=== PATIENT | male | born 1950 | race Caucasian/White ===

== ENCOUNTER 2017-07-18 21:05 | Inpatient (IN) | payer OTHER, MEDICARE ==
[~2017-07-18] VITALS: Ht 188 cm; Wt 74.7 kg
[~2017-07-18 21:05] MED LIST: ASPI81 PO; CARV6.252 PO; CEPH500C3 PO; COUM5TAB PO; PRIN10TA PO
[2017-07-18 21:09] VITALS: PULSE 201; RESP 28; O2SAT 99
[2017-07-18 21:18] VITALS: BP 123/86; PULSE 180; RESP 25; O2SAT 100
[2017-07-18] MEDS ORDERED: WARF-60 PO (21:18)
[2017-07-18] MEDS ORDERED: WARF4TAB52 PO (21:18)
[2017-07-18] MEDS ORDERED: ASPI-516 CHEW (21:18)
[2017-07-18] MEDS ORDERED: LISI20TA3 PO (21:18)
[2017-07-18 21:32] VITALS: O2SAT 99
[2017-07-18 21:41] VITALS: BP 139/87; PULSE 136; RESP 24; O2SAT 93; O2SAT 98
[2017-07-18] MEDS ORDERED: methylPREDNISolone SOD SUCC 125 MG/2 ML VIAL IV PUSH ONE (21:45)
[2017-07-18] MEDS ORDERED: METOPROLOL TARTRATE 5 MG/5 ML VIAL IV PUSH PRN (21:45)
[2017-07-18] MEDS ORDERED: METOPROLOL TARTRATE 25 MG TAB PO ONE (21:45)
[2017-07-18] MEDS ORDERED: RESP: ALBUTEROL 2.5 MG/IPRATROPIUM 0.5 MG NEB (SCH) NEB ONE (21:45)
[2017-07-18] MEDS: RESP: ALBUTEROL 2.5 MG/IPRATROPIUM 0.5 MG NEB (SCH) INH ×2 (21:45→21:52)
[2017-07-18] MEDS ORDERED: SODIUM CHLORIDE 0.9% FLUSH 10 ML FLUSH IVF PRN (21:45)
[2017-07-18 21:54] LABS: AUTOMATED NEUTROPHIL # 34.5 TH/MM3 (1.8-7.7); BASOPHIL # 0.1 TH/MM3 (0-0.2); BASOPHIL % 0.1 % (0.0-2.0); HEMATOCRIT 49.3 % (39.0-51.0); HEMOGLOBIN 16.7 GM/DL (13.0-17.0); LYMPH % 2.7 % (9.0-44.0); MEAN CELL VOLUME 82.9 FL (80.0-100.0); MEAN CORPUSCULAR HEMOGLOBIN 28.2 PG (27.0-34.0); MEAN PLATELET VOLUME 8.4 FL (7.0-11.0); MONO % 5.7 % (0.0-8.0); MONOCYTE # 2.1 TH/MM3 (0-0.9); NEUT % 91.5 % (16.0-70.0); PLATELET COUNT 310 TH/MM3 (150-450); RED BLOOD COUNT 5.94 MIL/MM3 (4.50-5.90); RED CELL DISTRIBUTION WIDTH 14.3 % (11.6-17.2); WHITE BLOOD COUNT 37.7 TH/MM3 (4.0-11.0)
--- NOTE | 2017-07-18 21:55 | PD ---
HPI Chief Complaint: Respiratory Distress Time Seen by Provider: 21:16 Travel History International Travel<30 days: No Contact w/Intl Traveler<30days: No Traveled to known affect area: No History of Present Illness HPI The patient is a 66 year old male who presents to the [facility] emergency department with a history of abdominal pain that he reports began yesterday. He reports that the abdominal pain radiated across his abdomen after he ate something at [employer]. He initially thought that he had food poisoning. He reports that he has had nausea and dry heaving since then. He reports that he has been able to keep down small bits of food including beef broth and crackers. He denies having any diarrhea. He reports that yesterday he moved his bowels 1 and it was an extremely hard stool. He reports that yesterday he also began to have shortness of breath. The patient reports having a prior history of smoking. He denies having any prior history of respiratory disease. He does however report having a history of cardiomyopathy with an ejection fraction noted previously to be approximately 25%. He denies having any significant cough or congestion. He denies having any fluid retention or lower extremity edema. He denies having any chest pain or chest pressure. The patient on arrival to this facility by private vehicle was noted to have heart rate in the 180s-200s and was in A. fib with RVR. The patient reports having a history of atrial fibrillation. He reports taking aspirin as well as low-dose aspirin daily. He reports that he recently established with Dr. Sharma a month ago for his primary care. He denies having a surgeon's assistant. Review of systems, the patient denies having any known recent fevers, neck pain, chest pain, shortness of breath, diarrhea, or neurologic symptoms. The patient incidentally also reports over the last 2 days having urinary frequency, urgency , and dysuria. [facility] Past Medical History Narrative Medical The patient's past medical history is significant for atrial fibrillation, cardiomyopathy, elevated TSH in the past, hypertension, tobacco use, reported history of cerebrovascular accident in 2009. Hx Anticoagulant Therapy: Yes (coumadin) Atrial Fibrillation: Yes Blood Disorders: No Cancer: No Cardiomyopathy: Yes Cardiovascular Problems: Yes Chemotherapy: No Cerebrovascular Accident: Yes (2009) Endocrine: No Glaucoma: No Genitourinary: Yes Immune Disorder: No Musculoskeletal: No Neurologic: No Psychiatric: No Reproductive: No Respiratory: Yes Radiation Therapy: No ?: Not Past Surgical History Narrative Surgical The patient's past surgical history is significant for right knee surgery as a teenager. Tonsillectomy: Yes Other Surgery: Yes Social History Alcohol Use: No Tobacco Use: No (The patient reportedly quit smoking years ago) Substance Use: No Allergies-Medications (Allergen,Severity, Reaction): Coded Allergies: penicillin G (Unverified Allergy, Severe, Rash, 07/18/17) Reported Meds & Prescriptions Reported Meds & Active Scripts Active Reported Warfarin 6 Mg Tab 6 Mg PO DAILY Warfarin 1 Mg Tab 1 Mg PO EVERY OTHER DAY Aspirin 81 Mg Chew 81 Mg CHEW DAILY Lisinopril-Hctz 20-25 Mg Tab 1 Tab PO DAILY Review of Systems Except as stated in HPI: all other systems reviewed are Neg General / Constitutional: No: Fever Eyes: No: Visual changes HENT: No: Headaches, Congestion Cardiovascular: Positive: Palpitations, Tachycardia, Dyspnea on exertion, No: Chest Pain or Discomfort Respiratory: Positive: Shortness of Breath, No: Cough Gastrointestinal: Positive: Nausea, Vomiting (Dry heaving), Abdominal Pain, Constipation, Changes in Bowel Habits, Indigestion, No: Diarrhea, Hematemesis, Hematochezia, Loss of Appetite Genitourinary: No: Dysuria Musculoskeletal: No: Pain Skin: No Rash Neurologic: No: Weakness, Focal Abnormalities, Change in Mentation, Slurred Speech, Sensory Disturbance Psychiatric: No: Depression Endocrine: No: Polydipsia Hematologic/Lymphatic: No: Easy Bruising Physical Exam Narrative General: The patient is a well-developed well-nourished male in no acute distress, however on arrival the patient is noted to have O2 saturations in the upper 80s on arrival at triage. Head and Neck exam: Head is normocephalic atraumatic. Eyes: EOMI, pupils are equal round and reactive to light. Nose: Midline septum with pink mucous membranes Mouth: Dentition unremarkable. Moist mucus membranes. Posterior oropharynx is not erythematous. No tonsillar hypertrophy. Uvula midline. Airway patent. Neck: No palpable lymphadenopathy. No nuchal rigidity. No thyromegaly. Cardiovascular: Irregularly tachycardic with a rate in the 180s appears to be atrial fibrillation on telemetry without murmurs, gallops, or rubs are audible. Lungs: Diminished breath sounds in bilateral lung bases. No rhonchi, no crackles audible. Soft anterior expiratory wheezes are audible. Abdomen: Soft, with tenderness on palpation in the midepigastric area. No other tenderness on palpation of the other quadrants of the abdomen. No tenderness on palpation of McBurney's point. No guarding, rebound, or rigidity. Negative Orellana sign. Extremities: No clubbing, cyanosis, or edema. 2+ pulses in all 4 extremities. No calf tenderness on palpation. Back: No spinous process tenderness to palpation. No costovertebral angle tenderness to palpation. Neurologic Exam: Grossly nonfocal. Skin Exam: No rash noted. Intact skin that is warm and dry. Data Data Last Documented VS Vital Signs Date Time Temp Pulse Resp B/P (MAP) Pulse Ox O2 Delivery O2 Flow Rate FiO2 07/19/17 00:56 100 22 128/98 (108) 98 Nasal Cannula 3.00 Orders Orders Electrocardiogram (07/18/17 21:14) Electrocardiogram (07/18/17 21:27) Complete Blood Count With Diff (07/18/17:) Comprehensive Metabolic Panel (07/18/17 21:) Creatine Kinase (Cpk) (07/18/17 21:) Ckmb (Isoenzyme) Profile (07/18/17:) Troponin I (07/18/17:) B-Type Natriuretic Peptide (07/18/17 21:) Prothrombin Time / Inr (Pt) (07/18/17:) Act Partial Throm Time (Ptt) (07/18/17:) Blood Culture (07/18/17:) C-Reactive Protein (Crp) (07/18/17 21:27) Lipase (07/18/17 21:27) Urinalysis - C+S If Indicated (07/18/17:) Magnesium (Mg) (07/18/17 21:) Thyroid Stimulating Hormone (07/18/17:) Chest, Single Ap (07/18/17 21:27) Iv Access Insert/Monitor (07/18/17 21:27) Ecg Monitoring (07/18/17:) Oximetry (07/18/17 21:) Lactic Acid Sepsis Protocol (07/18/17 21:27) Metoprolol Tartrate Inj (Lopressor Inj) (07/18/17 21:45) Albuterol-Ipratropium Neb (Duoneb Neb) (07/18/17 21:45) Metoprolol Tartrate (Lopressor) (07/18/17 21:45) Methylprednisolone So Succ Inj (Solumedr (07/18/17 21:45) Oxygen Administration (07/18/17 21:36) Sodium Chloride 0.9% Flush (Ns Flush) (07/18/17 21:45) Albuterol-Ipratropium Neb (Duoneb Neb) (07/18/17 21:45) Fentanyl Inj (Fentanyl Inj) (07/18/17 22:45) Vancomycin Inj (Vancomycin Inj) (07/18/17 22:41) Aztreonam Inj (Azactam Inj) (07/18/17 22:41) Metronidazole 500 Mg Inj (Flagyl 500 Mg (07/18/17 22:41) Sodium Chlor 0.9% 250 Ml Inj (Ns 250 Ml (07/18/17 23:00) Fentanyl Inj (Fentanyl Inj) (07/18/17 23:54) Urine Culture (07/18/17 23:10) Ct Abd/Pel W Iv Contrast(Rout) (07/19/17 21:27) Admit Order (Ed Use Only) (07/19/17 00:53) Labs Laboratory Tests Test 07/18/17 21:35 07/18/17 23:10 White Blood Count 37.7 TH/MM3 Red Blood Count 5.94 MIL/MM3 Hemoglobin 16.7 GM/DL Hematocrit 49.3 % Mean Corpuscular Volume 82.9 FL Mean Corpuscular Hemoglobin 28.2 PG Mean Corpuscular Hemoglobin Concent 34.0 % Red Cell Distribution Width 14.3 % Platelet Count 310 TH/MM3 Mean Platelet Volume 8.4 FL Neutrophils (%) (Auto) 91.5 % Lymphocytes (%) (Auto) 2.7 % Monocytes (%) (Auto) 5.7 % Eosinophils (%) (Auto) 0.0 % Basophils (%) (Auto) 0.1 % Neutrophils # (Auto) 34.5 TH/MM3 Lymphocytes # (Auto) 1.0 TH/MM3 Monocytes # (Auto) 2.1 TH/MM3 Eosinophils # (Auto) 0.0 TH/MM3 Basophils # (Auto) 0.1 TH/MM3 CBC Comment AUTO DIFF Differential Total Cells Counted 100 Neutrophils % (Manual) 89 % Band Neutrophils % 6 % Lymphocytes % 1 % Monocytes % 4 % Neutrophils # (Manual) 35.8 TH/MM3 Differential Comment FINAL DIFF MANUAL Platelet Estimate NORMAL Platelet Morphology Comment NORMAL Ovalocytes 1+ Acanthocytes OCC Prothrombin Time 38.9 SEC Prothromb Time International Ratio 3.9 RATIO Activated Partial Thromboplast Time 39.5 SEC Blood Urea Nitrogen 21 MG/DL Creatinine 1.35 MG/DL Random Glucose 206 MG/DL Total Protein 7.1 GM/DL Albumin 3.9 GM/DL Calcium Level 9.0 MG/DL Magnesium Level 1.7 MG/DL Alkaline Phosphatase 60 U/L Aspartate Amino Transf (AST/SGOT) 36 U/L Alanine Aminotransferase (ALT/SGPT) 32 U/L Total Bilirubin 3.5 MG/DL Sodium Level 140 MEQ/L Potassium Level 3.2 MEQ/L Chloride Level 99 MEQ/L Carbon Dioxide Level 26.5 MEQ/L Anion Gap 15 MEQ/L Estimat Glomerular Filtration Rate 53 ML/MIN Lactic Acid Level 4.2 mmol/L Total Creatine Kinase 87 U/L Troponin I 0.42 NG/ML C-Reactive Protein 2.37 MG/DL B-Type Natriuretic Peptide 1386 PG/ML Lipase 58 U/L Thyroid Stimulating Hormone 3rd Gen 3.450 uIU/ML Urine Color DARK-YELLOW Urine Turbidity HAZY Urine pH 6.0 Urine Specific [place] 1.033 Urine Protein 300 mg/dL Urine Glucose (UA) TRACE mg/dL Urine Ketones 10 mg/dL Urine Occult Blood MOD Urine Nitrite NEG Urine Bilirubin NEG Urine Urobilinogen 2.0 MG/DL Urine Leukocyte Esterase MOD Urine RBC 7 /hpf Urine WBC 45 /hpf Urine Squamous Epithelial Cells 5 /hpf Urine Transitional Epithelial Cells <1 /hpf Urine Bacteria RARE /hpf Urine Hyaline Casts 20 /lpf Urine Granular Casts 3 /lpf Urine Mucus MANY /lpf Microscopic Urinalysis Comment CULTURE INDICATED MDM Medical Decision Making Medical Screen Exam Complete: Yes Emergency Medical Condition: Yes Medical Record Reviewed: Yes Differential Diagnosis COPD exacerbation, versus congestive heart failure related to his cardiomyopathy , versus A. fib with RVR with pulmonary edema, versus pneumonia, versus ischemic bowel, versus pancreatitis Narrative Course During the course of the patient's emergency department visit, the patient's history, examination, and differential diagnosis were reviewed with the patient. The patient was placed on a lunchroom monitor with oximetry and frequent blood pressure monitoring. The patient had IV access obtained and blood work sent for analysis. The patient had an EKG done on arrival. The patient's EKG reveals A. fib with RVR heart rate of 182, QRS duration 97 ms, QTC [address] segment elevation is noted. Nonspecific ST-T wave abnormalities are noted. Pharmacy was called regarding this patient's case as I was told that not only is a hospital out of [facility], however it is also out of [facility]. I had a lengthy discussion with the pharmacist regarding options. The patient was initially provided metoprolol 5 mg every 5 minutes 3 as needed heart rate above 110 followed by metoprolol 25 mg p.o. 1. A DuoNeb 1 was started, however the patient reports that the symptoms are worse with this administration, therefore he refused any additional nebulizer treatments. Given the patient's history of cardiomyopathy with a low ejection fraction reportedly of 25%, the patient will be gently hydrated as aggressive hydration may lead to fluid overload and respiratory failure. The patient's heart rate came down into the 1 teens after 2 doses of metoprolol. The patient's blood pressure remained stable. The patient was given the metoprolol p.o. The patient's laboratory studies were reviewed and remarkable for lactic acid is reportedly 4.2. Patient has a white count of 37.7, with a left shift neutrophil predominance at 91.5. The patient was started on broad-spectrum antibiotic with a suspected intra-abdominal source to include Azactam, Flagyl, and vancomycin given his penicillin allergy. Platelets are 310. Hemoglobin is 16.7. CMP is remarkable for potassium 3.2, BUN 21, creatinine 1.35, glucose 206 , total bilirubin is 3.5 without any other derangements of his liver function tests, troponin I 0.42 likely related to his tachycardia, C-reactive protein 2.37, BNP is 1386, lipase 58, TSH within normal limits, PT 38.9, INR 3.9, PTT 39.5. Urinalysis shows 300 protein, 10 ketones, moderate occult blood, 7 RBCs, moderate leukocyte esterase with 45 WBCs, rare bacteria, many mucus, culture indicated. Radiology studies were reviewed and remarkable for a chest x-ray that shows no acute intrathoracic disease, hyperaeration with chronic interstitial changes suggestive of COPD. CT scan of the abdomen and pelvis shows densely calcified prostate, renal cysts, and chronic atherosclerotic calcifications, otherwise no acute abnormality. Given the patient's elevated lactate certainly ischemic bowel is in the differential although this is deemed to be less likely as the vessels appeared patent on CT and the patient is anticoagulated on Coumadin. The patient's results were discussed with the patient, including the plan of care. I explained that further testing and/ or monitoring is indicated based on the patient's history, examination, and/ or laboratory findings. Therefore, I recommended admission for additional evaluation. The patient expressed understanding and was agreeable with this plan. The patient was admitted to the hospital in guarded condition and sent to a bed under the care of the web services manager service. Critical Care Narrative Aggregate critical care time was 41 minutes. Time to perform other separately billable procedures was not included in the critical care time. My time did not include minutes spent treating any other patients simultaneously or on activities that did not directly contribute to the patient's treatment. The services I provided to this patient were to treat and/or prevent clinically significant deterioration that could result in: Cardiovascular collapse from cardiac arrhythmia, versus fluid overload from volume resuscitation with respiratory failure I provided critical care services requiring my management, as noted below: Chart data review, documentation time, medication orders and management, vital sign assessments/reviewing monitor data, ordering and reviewing lab tests, ordering and interpreting/reviewing x-rays and diagnostic studies, care of the patient and discussion of the patient with the admitting physicians. Physician Communication Physician Communication The patient's case including history, pertinent physical examination findings, and laboratory studies were discussed with Dr. Ceballos, the web services manager. It was agreed that the patient would be admitted to the web services manager service. Diagnosis Primary Impression: Atrial fibrillation with RVR Additional Impressions: Shortness of breath Urinary tract infection Qualified Codes: N39.0 - Urinary tract infection, site not specified; R31.9 - Hematuria, unspecified Admitting Information Admitting Physician Requests: Mallika Van MD July 18, 2017 21:55
[2017-07-18 22:15] VITALS: BP 134/89; PULSE 109; RESP 24; O2SAT 99
[2017-07-18 22:19] LABS: LACTIC ACID SEPSIS PROTOCOL 4.2 mmol/L (0.4-2.0)
[2017-07-18 22:25] LABS: ALBUMIN 3.9 GM/DL (3.4-5.0); ALT (GPT) 32 U/L (12-78); AST (GOT) 36 U/L (15-37); BICARBONATE 26.5 MEQ/L (21.0-32.0); BLOOD UREA NITROGEN 21 MG/DL (7-18); C-REACTIVE PROTEIN 2.37 MG/DL (0.00-0.30); CHLORIDE 99 MEQ/L (98-107); CREATININE 1.35 MG/DL (0.60-1.30); GLOMERULAR FILTRATION RATE 53 ML/MIN (>89); GLUCOSE,RANDOM 206 MG/DL (74-106); MAGNESIUM 1.7 MG/DL (1.5-2.5); SODIUM (NA) 140 MEQ/L (136-145)
[2017-07-18 22:31] LABS: INTERNATIONAL NORMALIZED RATIO 3.9 RATIO; PROTHROMBIN TIME - PATIENT 38.9 SEC (9.8-11.6)
[2017-07-18 22:34] LABS: ALKALINE PHOSPHATASE 60 U/L (45-117); TOTAL BILIRUBIN ADULT 3.5 MG/DL (0.2-1.0); TOTAL PROTEIN 7.1 GM/DL (6.4-8.2); TROPONIN I 0.42 NG/ML (0.02-0.05)
[2017-07-18] MEDS ORDERED: AZTREONAM INJ 2,000 MG in SODIUM CHLORIDE 0.9% INJ 100 ML IV STA (22:41)
[2017-07-18] MEDS ORDERED: VANCOMYCIN INJ 1,000 MG in SODIUM CHLOR 0.9% 250 ML INJ 250 ML IV STA (22:41)
[2017-07-18] MEDS ORDERED: metroNIDAZOLE 500 MG INJ 100 ML IV STA (22:41)
--- NOTE | 2017-07-18 22:41 | RADRPT ---
EXAM DATE: 07/18/2017 10:23 PM EDT AGE/SEX: 66 years / Male INDICATIONS: Short of breath. CLINICAL DATA: This is the patient's initial encounter. Patient reports that signs and symptoms have been present for 1 day and indicates a pain score of 5/10. MEDICAL/SURGICAL HISTORY: None. None. COMPARISON: No prior [facility] exams available for comparison. FINDINGS: A single AP view of the chest demonstrates the lungs to be symmetrically aerated without evidence of mass, infiltrate or effusion. There is hyperaeration bilaterally with some chronic interstitial bejarano es. The cardiomediastinal contours are unremarkable. Osseous structures are intact. CONCLUSION: 1. No acute intrathoracic disease. 2. Hyperaeration with chronic interstitial changes suggestive of COPD. Electronically signed by: Steve Joseph MD 07/18/2017 10:40 PM EDT
[2017-07-18] MEDS ORDERED: fentaNYL CITRATE 250 MCG/5 ML AMP IV PUSH ONE (22:45)
[2017-07-18 22:54] LABS: BANDS 6 % (0-6); LYMPHOCYTES 1 % (9-44); MONOCYTES 4 % (0-8); NEUTROPHIL # MANUAL DIFF 35.8 TH/MM3 (1.8-7.7); POLYS (SEG NEUTROPHILS) 89 % (16-70)
[2017-07-18 22:56] LABS: ACANTHOCYTES OCC (NORMAL); OVALOCYTES 1+ (NORMAL)
[2017-07-18] MEDS ORDERED: SODIUM CHLOR 0.9% 250 ML INJ 250 ML IV ONE (23:00)
[2017-07-18 23:03] VITALS: BP 133/98; PULSE 125; RESP 22; O2SAT 99
[2017-07-18] MEDS ORDERED: IOHEXOL 350 MG/ML 10 ML VIAL (for RAD DIAG) IVCONTRAST ONE (23:50)
[2017-07-18] MEDS ORDERED: fentaNYL CITRATE 250 MCG/5 ML AMP ONE (23:54)
[2017-07-18 23:59] LABS: BACTERIA, URINE RARE /hpf; BILIRUBIN, URINE NEG (NEG); BLOOD, URINE MOD (NEG); GLUCOSE,URINE TRACE mg/dL (NEG); HYALINE CAST, URINE 20 /lpf (RARE); KETONE, URINE 10 mg/dL (NEG); MUCUS URINE MANY /lpf (OCC); NITRITE,URINE NEG (NEG); SQUAMOUS EPITHELIAL CELL URINE 5 /hpf (0-5); TRANSITIONAL EPI CELLS, URINE <1 /hpf; URINE COLOR DARK-YELLOW (YELLW/STRAW); URINE LEUKOCYTE ESTERASE MOD (NEG)
[2017-07-19] VITALS (22 sets, daily range): BP systolic 82–143; BP diastolic 60–113; PULSE 68–148; RESP 15–34; TEMP 97.4–98.7; O2SAT 91–100
--- NOTE | 2017-07-19 00:35 | RADRPT ---
EXAM DATE: 07/19/2017 12:26 AM EDT AGE/SEX: 66 years / Male INDICATIONS: Abdomen pain; elevated white count. CLINICAL DATA: This is the patient's initial encounter. Patient reports that signs and symptoms have been present for 1 day and indicates a pain score of 6/10. MEDICAL/SURGICAL HISTORY: Cardiovascular disease. Stroke. None. ORAL CONTRAST: No oral contrast ingested. RADIATION DOSE: 6.64 CTDI (mGy) COMPARISON: No prior exams available for comparison. TECHNIQUE: Multiple contiguous axial images were obtained through the abdomen and pelvis following b olus infusion of 90 ml Omnipaque 350 (iohexol) nonionic water-soluble contrast as a single exam dos e. No oral contrast ingested. Using automated exposure control and adjustment of the mA and/or kV ac cording to patient size, the radiation dose was kept as low as reasonably achievable to obtain optima l diagnostic quality images. FINDINGS: Abdomen CT: The liver, spleen, pancreas, adrenals are unremarkable. There are multiple cysts in both kidneys the largest measures 1.4 cm on the left. There is no evidence for any appreciable pathological adenopath y, free fluid, or bowel obstruction. There are atherosclerotic calcifications involving the aorta an d iliac arteries chronic in nature. Pelvic CT: There is no evidence for mass, abscess formation, or any significant adenopathy within the pelvis. T he prostate gland measures3.4 x 5.2 cm in AP and transverse diameters inhomogeneous densely calcified , and nonspecific. CONCLUSION: 1. Densely calcified prostate, renal cysts and chronic atherosclerotic calcifications. 2. Otherwise unremarkable. Electronically signed by: Henry Pemberton MD 07/19/2017 12:33 AM EDT
[2017-07-19] MEDS ORDERED: DEXTROSE 50% IN WATER 50 ML VIAL(D50) IV PUSH PRN (01:15)
[2017-07-19] MEDS ORDERED: POTASSIUM CHLOR 20 MEQ PREMIX 100 ML IV PRN ×2 (01:15)
[2017-07-19] MEDS ORDERED: MAGNESIUM SULFATE INJ 2 GM in SODIUM CHLORIDE 0.9% INJ 96 ML IV PRN (01:15)
[2017-07-19] MEDS ORDERED: Vancomycin Consult Pharmacy 1 EA OTHER SCH (01:15)
[2017-07-19] MEDS ORDERED: SODIUM PHOSPHATE INJ 30 MMOL in SODIUM CHLOR 0.9% 250 ML INJ 240 ML IV PRN (01:15)
[2017-07-19] MEDS ORDERED: POTASSIUM PHOSPHATE INJ 30 MMOL in SODIUM CHLOR 0.9% 250 ML INJ 250 ML IV PRN (01:15)
[2017-07-19] MEDS ORDERED: CHLORHEXIDINE GLUCONATE 2 % 1 PACK (2 CLOTHS) TOP PRN (01:15)
[2017-07-19] MEDS ORDERED: MAGNESIUM OXIDE 400 MG TAB PO PRN (01:15)
[2017-07-19] MEDS ORDERED: METOPROLOL TARTRATE 5 MG/5 ML VIAL IV PUSH PRN (01:15)
[2017-07-19] MEDS ORDERED: NURSING INFORMATION XX SCH (01:15)
[2017-07-19] MEDS ORDERED: MAGNESIUM SULFATE INJ 4 GM in SODIUM CHLORIDE 0.9% INJ 92 ML IV PRN (01:15)
[2017-07-19] MEDS ORDERED: POTASSIUM CHLOR 40 MEQ PREMIX 100 ML IV PRN ×2 (01:15)
[2017-07-19] MEDS ORDERED: POTASSIUM PHOSPHATE MONOBASIC 500 MG TAB PO/TUBE PRN (01:15)
[2017-07-19] MEDS ORDERED: RESP: ALBUTEROL 2.5 MG/IPRATROPIUM 0.5 MG NEB (PRN) INH (01:15)
[2017-07-19] MEDS ORDERED: POTASSIUM CHLORIDE 25 MEQ EFFERVESCENT TAB PO PRN (01:15)
[2017-07-19] MEDS ORDERED: POTASSIUM PHOSPHATE MONOBASIC 500 MG TAB PO PRN (01:15)
--- NOTE | 2017-07-19 01:21 | HHI.HP ---
[facility] Service Critical Care Medicine Primary Care Physician Non-Staff Admission Diagnosis Afib with RVR, Sepsis Diagnosis: Chief Complaint: nausea Travel History International Travel<30 Days: No Contact w/Intl Traveler <30 Da: No Traveled to Known Affected Are: No History of Present Illness This is a 66-year-old male with a history of cardiomyopathy with an EF of 25% as well as a prior CVA in 2009 who presents with a 3 day history of abdominal pain, nausea, diarrhea. The patient states that he felt like it was probably food poisoning. In addition to this he has experienced worsening shortness of breath over the last 1 day. He presented the emergency department where he was found to be in atrial fibrillation with rapid ventricular response and a heart rate greater than 180. He was given IV Lopressor and his heart rate improved. He has laboratory evidence significant for a white count of 37,000, creatinine of 1.3, T bili of 3.5, troponin of 0.4, CRP elevated at 2.37, BNP elevated at 1386, lactate of 4.2. He denies any chest pain, palpitations, syncope, dyspnea on exertion. He denies any changes to his medical history. He states that he was given a prescription for Lasix a long time ago if his weight increased more than 1-2 pounds a day, but he has not needed this medication a long time his weight is remained stable. He has not experienced any recent weight gain or weight loss. He does endorse fever and chills with his most recent complaints of abdominal pain and nausea. The remainder of his review of systems is negative. Review of Systems Constitutional: COMPLAINS OF: Fever, Chills, DENIES: Diaphoretic episodes, Fatigue Eyes: DENIES: Blurred vision Ears, nose, mouth, throat: DENIES: Throat pain, Hoarseness Respiratory: COMPLAINS OF: Shortness of breath, DENIES: Apneas, Cough, Snoring , Hemoptysis, Sputum production Cardiovascular: DENIES: Chest pain, Palpitations, Syncope, Dyspnea on Exertion , PND, Lower Extremity Edema, Orthopnea, Claudication Gastrointestinal: COMPLAINS OF: Abdominal pain, Diarrhea, Nausea, DENIES: Black stools, Bloody stools, Constipation, Vomiting Musculoskeletal: DENIES: Muscle aches, Stiffness Hematologic/lymphatic: DENIES: Lymphadenopathy Neurologic: DENIES: Abnormal gait, Headache, Localized weakness Psychiatric: DENIES: Anxiety, Confusion Past Family Social History Allergies: Coded Allergies: penicillin G (Unverified Allergy, Severe, Rash, 07/18/17) Past Medical History Atrial fibrillation Cardiomyopathy with an EF of 25% Hypertension Prior CVA in 2009 Past Surgical History Right knee surgery as a teenager Tonsillectomy Reported Medications Warfarin 6 Mg Tab 6 Mg PO DAILY Warfarin 1 Mg Tab 1 Mg PO EVERY OTHER DAY Aspirin 81 Mg Chew 81 Mg CHEW DAILY Lisinopril-Hctz 20-25 Mg Tab 1 Tab PO DAILY Active Ordered Medications See MAR Family History Reviewed and found to be noncontributory to his acute illness Social History Former smoker. Denies EtOH. Denies drugs of abuse. Physical Exam Vital Signs Vital Signs Date Time Temp Pulse Resp B/P (MAP) Pulse Ox O2 Delivery O2 Flow Rate FiO2 07/19/17 00:56 100 22 128/98 (108) 98 Nasal Cannula 3.00 07/19/17 00:53 20 07/18/17 23:03 125 22 133/98 (110) 99 Nasal Cannula 3.00 07/18/17 22:15 109 24 134/89 (104) 99 Nasal Cannula 3.00 07/18/17 21:42 98 Nasal Cannula 3.00 07/18/17 21:41 136 24 139/87 (104) 98 Nasal Cannula 3.00 07/18/17 21:41 93 Nasal Cannula 4.00 07/18/17 21:32 99 Nasal Cannula 3.00 07/18/17 21:18 180 25 123/86 (98) 100 Nasal Cannula 3.00 07/18/17 21:12 99 Nasal Cannula 3.00 07/18/17 21:09 201 28 99 Physical Exam GENERAL: Middle-aged appearing male, lying in bed, conversant, no acute distress HEENT: Normocephalic. Atraumatic. Pupils equal, round, reactive, conjugate. Mucous membranes are moist NECK: Trachea is midline. There is no JVD. CHEST: Equal chest rise. Nasal cannula oxygen. CARDIOVASCULAR: Tachycardic rate, irregularly irregular rhythm. Appears A. fib by telemetry. Heart rate is in the 110s on my evaluation ABDOMEN: Soft, nontender, nondistended. No guarding. MUSCULOSKELETAL: Pulses 2+. No peripheral edema. Extremities are warm and well -perfused. Adequate cap refill. NEUROLOGICAL: RASS 0. CAM -. GCS 15. Follows commands. No focal deficits. Laboratory Laboratory Tests Test 07/18/17 21:35 07/18/17 23:10 White Blood Count 37.7 Red Blood Count 5.94 Hemoglobin 16.7 Hematocrit 49.3 Mean Corpuscular Volume 82.9 Mean Corpuscular Hemoglobin 28.2 Mean Corpuscular Hemoglobin Concent 34.0 Red Cell Distribution Width 14.3 Platelet Count 310 Mean Platelet Volume 8.4 Neutrophils (%) (Auto) 91.5 Lymphocytes (%) (Auto) 2.7 Monocytes (%) (Auto) 5.7 Eosinophils (%) (Auto) 0.0 Basophils (%) (Auto) 0.1 Neutrophils # (Auto) 34.5 Lymphocytes # (Auto) 1.0 Monocytes # (Auto) 2.1 Eosinophils # (Auto) 0.0 Basophils # (Auto) 0.1 CBC Comment AUTO DIFF Differential Total Cells Counted 100 Neutrophils % (Manual) 89 Band Neutrophils % 6 Lymphocytes % 1 Monocytes % 4 Neutrophils # (Manual) 35.8 Differential Comment FINAL DIFF MANUAL Platelet Estimate NORMAL Platelet Morphology Comment NORMAL Ovalocytes 1+ Acanthocytes OCC Prothrombin Time 38.9 Prothromb Time International Ratio 3.9 Activated Partial Thromboplast Time 39.5 Blood Urea Nitrogen 21 Creatinine 1.35 Random Glucose 206 Total Protein 7.1 Albumin 3.9 Calcium Level 9.0 Magnesium Level 1.7 Alkaline Phosphatase 60 Aspartate Amino Transf (AST/SGOT) 36 Alanine Aminotransferase (ALT/SGPT) 32 Total Bilirubin 3.5 Sodium Level 140 Potassium Level 3.2 Chloride Level 99 Carbon Dioxide Level 26.5 Anion Gap 15 Estimat Glomerular Filtration Rate 53 Lactic Acid Level 4.2 Total Creatine Kinase 87 Troponin I 0.42 C-Reactive Protein 2.37 B-Type Natriuretic Peptide 1386 Lipase 58 Thyroid Stimulating Hormone 3rd Gen 3.450 Urine Color DARK-YELLOW Urine Turbidity HAZY Urine pH 6.0 Urine Specific [place] 1.033 Urine Protein 300 Urine Glucose (UA) TRACE Urine Ketones 10 Urine Occult Blood MOD Urine Nitrite NEG Urine Bilirubin NEG Urine Urobilinogen 2.0 Urine Leukocyte Esterase MOD Urine RBC 7 Urine WBC 45 Urine Squamous Epithelial Cells 5 Urine Transitional Epithelial Cells <1 Urine Bacteria RARE Urine Hyaline Casts 20 Urine Granular Casts 3 Urine Mucus MANY Microscopic Urinalysis Comment CULTURE INDICATED Date/Time Source Procedure Growth Status 07/18/17 21:30 Blood Peripheral Aerobic Blood Culture Pending Received 07/18/17 21:30 Blood Peripheral Anaerobic Blood Culture Pending Received 07/18/17 23:10 Urine Clean Catch Urine Culture Pending Received Result Diagram: 07/18/17213407/18/[id number] Imaging Last Impressions Abdomen/Pelvis CT 07/19/172126 Signed Impressions: CONCLUSION: 1. Densely calcified prostate, renal cysts and chronic atherosclerotic calcifi cations. 2. Otherwise unremarkable. Chest X-Ray 07/18/172126 Signed Impressions: CONCLUSION: 1. No acute intrathoracic disease. 2. Hyperaeration with chronic interstitial changes suggestive of COPD. Septic Shock Reassessment Septic shock perfusion: reassessment completed Caprini VTE Risk Assessment Caprini VTE Risk Assessment: Mod/High Risk (score >= 2) VTE Pharm Contraindication: Coagulopathy,INR elevated Caprini Risk Assessment Model Point Value = 1 Point Value = 2 Point Value = 3 Point Value = 5 Age 41-60 Minor surgery BMI > 25 kg/m2 Swollen legs Varicose veins or History of unexplained or recurrent spontaneous Oral contraceptives or hormone replacement Sepsis (< 1 month) Serious lung disease, including pneumonia (< 1 month) Abnormal pulmonary function Acute myocardial infarction Congestive heart failure (< 1 month) History of inflammatory bowel disease Medical patient at bed rest Age 61-74 Arthroscopic surgery Major open surgery (> 45 min) Laparoscopic surgery (> 45 min) Malignancy Confined to bed (> 72 hours) Immobilizing plaster cast Central venous access Age >= 75 History of VTE Family history of VTE Factor V Leiden Prothrombin [id number] Lupus anticoagulant Anticardiolipin antibodies Elevated serum homocysteine Heparin-induced thrombocytopenia Other congenital or acquired thrombophilia Stroke (< 1 month) Elective arthroplasty Hip, pelvis, or leg fracture Acute spinal cord injury (< 1 month) Prophylaxis Regimen Total Risk Factor Score Risk Level Prophylaxis Regimen 0-1 Low Early ambulation 2 Moderate Order ONE of the following: *Sequential Compression Device (SCD) *Heparin 5000 units SQ BID 3-4 Higher Order ONE of the following medications: *Heparin 5000 units SQ TID *Enoxaparin/Lovenox 40 mg SQ daily (WT < 150 kg, CrCl > 30 mL/min) *Enoxaparin/Lovenox 30 mg SQ daily (WT < 150 kg, CrCl > 10-29 mL/min) *Enoxaparin/Lovenox 30 mg SQ BID (WT < 150 kg, CrCl > 30 mL/min) AND/OR *Sequential Compression Device (SCD) 5 or more Highest Order ONE of the following medications: *Heparin 5000 units SQ TID (Preferred with Epidurals) *Enoxaparin/Lovenox 40 mg SQ daily (WT < 150 kg, CrCl > 30 mL/min) *Enoxaparin/Lovenox 30 mg SQ daily (WT < 150 kg, CrCl > 10-29 mL/min) *Enoxaparin/Lovenox 30 mg SQ BID (WT < 150 kg, CrCl > 30 mL/min) AND *Sequential Compression Device (SCD) Assessment and Plan Assessment and Plan Assessment: 66-year-old male with cardiomyopathy and EF of 25%'s as well as prior CVA in 2009 who presents with acute onset nausea, diarrhea as well as atrial fibrillation with rapid ventricular response. It is unclear at the present time if his Afib RVR is the ultimate cause which led to cardiogenic shock and abdominal pain, or if severe acute gastroenteritis led to electrolyte and intravascular volume abnormalities which led to afib RVR. on bedside critical care echo, it appears that the patient has a dilated IVC without respiratory variation and does not need significantly more volume resuscitation. will admit to ICU, keep on iv abx, check stool cultures and blood cultures and trend lab data. highly complex with multiple problems and multiorgan dysfunction secondary to his acute illness. Plan by systems: Neurologic: Frequent neurochecks Respiratory: Wean oxygen by nasal cannula for goal SPO2 greater than 90% Cardiovascular: Atrial fibrillation with rapid ventricular response Elevated troponin, likely type II NSTEMI secondary to demand ischemia Severely elevated BNP Cardiomyopathy, EF 25% Lopressor 5 mg IV every 4 hours scheduled Lopressor 5 mill grams IV q. 5 minutes as needed, goal heart rate less than 110 Trend troponins Unlikely to be acute coronary syndrome given lack of chest pain or other symptoms. Will not add additional heparin infusion. Already anticoagulated with Coumadin Will not add additional IV fluid resuscitation or force diuresis at this time. Trend BNP Renal: Acute kidney injury Likely secondary to either poor renal perfusion from cardiogenic shock from tachydysrhythmia versus acute gastroenteritis with volume shift Trend creatinine on daily BMP -- Strict I/Os FEN/GI: Possible acute gastroenteritis Nausea/vomiting Diarrhea Elevated T bili Lactic acidosis N.p.o. and slowly advance diet to clears as patient tolerates ICU electrolyte protocol Trend CMP Unclear etiology of elevated T bili. May be secondary to liver dysfunction from poor perfusion CT abdomen/pelvis 07/19-negative for acute disease Trend lactates Heme/ID: Possible acute gastroenteritis Leukocytosis Send stool for culture Blood cultures Urine culture Vancomycin with pharmacy dosing Aztreonam, penicillin allergy Flagyl Endocrine: Diabetes -- SSI Prophylaxis: GI Prophylaxis Pepcid DVT Prophylaxis -- SCDs Patient has supratherapeutic INR on Coumadin. Hold Coumadin and check daily INRs. Lines: Peripheral IVs Dispo: Admit ICU. Highly complex. Kin Ceballos MD July 19, 2017 01:21
[2017-07-19] MEDS: MAGNESIUM SULFATE 1 GM PREMIX 100 ML IV SCH ×2 (02:27→03:20)
[2017-07-19] MEDS: METOPROLOL TARTRATE 5 MG/5 ML VIAL IV PUSH SCH ×6 (02:27→22:17)
[2017-07-19] MEDS ORDERED: VANCOMYCIN 500 MG/NS 100 ML IV ONE ×2 (03:00)
[2017-07-19] MEDS: INSULIN NovoLIN REGULAR SUPPLEMENTAL SCALE SQ SCH ×5 (03:00→19:52)
[2017-07-19] MEDS: CHLORHEXIDINE GLUCONATE 2 % 1 PACK (2 CLOTHS) TOP SCH (03:18)
[2017-07-19] MEDS: metroNIDAZOLE 500 MG INJ 100 ML IV SCH ×4 (04:45→23:52)
[2017-07-19] MEDS: AZTREONAM INJ 1,000 MG in SODIUM CHLORIDE 0.9% INJ 100 ML IV SCH ×3 (06:26→23:17)
--- NOTE | 2017-07-19 06:53 | HHI.CCPN ---
Subjective Remarks/Hospital Course This is a 66-year-old male with a history of cardiomyopathy with an EF of 25% as well as a prior CVA in 2009 who presents with a 3 day history of abdominal pain, nausea, diarrhea. The patient states that he felt like it was probably food poisoning. In addition to this he has experienced worsening shortness of breath over the last 1 day. He presented the emergency department where he was found to be in atrial fibrillation with rapid ventricular response and a heart rate greater than 180. He was given IV Lopressor and his heart rate improved. He has laboratory evidence significant for a white count of 37,000, creatinine of 1.3, T bili of 3.5, troponin of 0.4, CRP elevated at 2.37, BNP elevated at 1386, lactate of 4.2. He denies any chest pain, palpitations, syncope, dyspnea on exertion. He denies any changes to his medical history. He states that he was given a prescription for Lasix a long time ago if his weight increased more than 1-2 pounds a day, but he has not needed this medication a long time his weight is remained stable. He has not experienced any recent weight gain or weight loss. He does endorse fever and chills with his most recent complaints of abdominal pain and nausea. The remainder of his review of systems is negative. Subjective: 07/19: 0650-The patient is refusing a.m. labs, convinced to allow participation in labs to identify therapeutic INR and appropriate antibiotic coverage. Heart rate 110-120's, no dyspnea noted. Objective Vital Signs Date Time Temp Pulse Resp B/P (MAP) Pulse Ox O2 Delivery O2 Flow Rate FiO2 07/19/17 06:00 68 07/19/17 06:00 97.9 15 84/60 (68) 96 07/19/17 02:22 Nasal Cannula 2.00 Intake and Output 07/19/17 07/19/17 07/20/17 08:00 16:00 00:00 Intake Total 900 ml Output Total 400 ml Balance 500 ml Result Diagram: 07/18/17213407/18/[id number] Imaging Last Impressions Abdomen/Pelvis CT 07/19/172126 Signed Impressions: CONCLUSION: 1. Densely calcified prostate, renal cysts and chronic atherosclerotic calcifi cations. 2. Otherwise unremarkable. Chest X-Ray 07/18/172126 Signed Impressions: CONCLUSION: 1. No acute intrathoracic disease. 2. Hyperaeration with chronic interstitial changes suggestive of COPD. Objective Remarks GENERAL: Middle-aged appearing male, lying in bed, conversant, no acute distress HEENT: Normocephalic. Atraumatic. Pupils equal, round, reactive, conjugate. Mucous membranes are moist NECK: Trachea is midline. There is no JVD. CHEST: Equal chest rise. Nasal cannula oxygen. CARDIOVASCULAR: Tachycardic rate, irregularly irregular rhythm. Appears A. fib by telemetry. Heart rate is in the 110s on my evaluation ABDOMEN: Soft, nontender, nondistended. No guarding. MUSCULOSKELETAL: Pulses 2+. No peripheral edema. Extremities are warm and well -perfused. Adequate cap refill. NEUROLOGICAL: RASS 0. CAM -. GCS 15. Follows commands. No focal deficits. A/P Assessment and Plan Assessment: 66-year-old male with cardiomyopathy and EF of 25%'s as well as prior CVA in 2009 who presents with acute onset nausea, diarrhea as well as atrial fibrillation with rapid ventricular response. It is unclear at the present time if his Afib RVR is the ultimate cause which led to cardiogenic shock and abdominal pain, or if severe acute gastroenteritis led to electrolyte and intravascular volume abnormalities which led to afib RVR. on bedside critical care echo, it appears that the patient has a dilated IVC without respiratory variation and does not need significantly more volume resuscitation. will admit to ICU, keep on iv abx, check stool cultures and blood cultures and trend lab data. highly complex with multiple problems and multiorgan dysfunction secondary to his acute illness. Plan by systems: Neurologic: Frequent neurochecks Respiratory: Wean oxygen by nasal cannula for goal SPO2 greater than 90% Cardiovascular: Atrial fibrillation with rapid ventricular response Elevated troponin, likely type II NSTEMI secondary to demand ischemia Severely elevated BNP Cardiomyopathy, EF 25% Lopressor 5 mg IV every 4 hours scheduled Lopressor 5 mill grams IV q. 5 minutes as needed, goal heart rate less than 110 Trend troponins Unlikely to be acute coronary syndrome given lack of chest pain or other symptoms. Will not add additional heparin infusion. Already anticoagulated with Coumadin Will not add additional IV fluid resuscitation or force diuresis at this time. Trend BNP Renal: Acute kidney injury Likely secondary to either poor renal perfusion from cardiogenic shock from tachydysrhythmia versus acute gastroenteritis with volume shift Trend creatinine on daily BMP -- Strict I/Os FEN/GI: Possible acute gastroenteritis Nausea/vomiting Diarrhea Elevated T bili Lactic acidosis N.p.o. and slowly advance diet to clears as patient tolerates ICU electrolyte protocol Trend CMP Unclear etiology of elevated T bili. May be secondary to liver dysfunction from poor perfusion CT abdomen/pelvis 07/19-negative for acute disease Trend lactates-currently 4.2 Heme/ID: Possible acute gastroenteritis Leukocytosis Send stool for culture Blood cultures Urine culture Vancomycin with pharmacy dosing Aztreonam, penicillin allergy Flagyl Obtain CBC Endocrine: Diabetes -- SSI Prophylaxis: GI Prophylaxis Pepcid DVT Prophylaxis -- SCDs Patient has supratherapeutic INR on Coumadin. Hold Coumadin and check daily INRs. Lines: Peripheral IVs Dispo: my billing statement This patient remains critically ill with one or more organ systems which are or may become a threat to life. I have spent in excess of 30 minutes discontinuously in the care and management of this patient. This time is exclusive of procedures, and includes, but is not limited to, evaluation of the patient, review of the medical record, discussions with family, consultants, nursing staff, or respiratory therapy, and documentation in the medical record. Physician Rajni Trinh MD July 19, 2017 06:53
[2017-07-19 08:12] LABS: HEMATOCRIT 46.4 % (39.0-51.0); HEMOGLOBIN 15.2 GM/DL (13.0-17.0); MEAN CELL VOLUME 82.7 FL (80.0-100.0); MEAN CORPUSCULAR HGB CONC 32.7 % (32.0-36.0); MEAN PLATELET VOLUME 8.5 FL (7.0-11.0); PLATELET COUNT 251 TH/MM3 (150-450); RED BLOOD COUNT 5.61 MIL/MM3 (4.50-5.90); RED CELL DISTRIBUTION WIDTH 14.3 % (11.6-17.2); WHITE BLOOD COUNT 26.1 TH/MM3 (4.0-11.0)
[2017-07-19 08:19] LABS: INTERNATIONAL NORMALIZED RATIO 2.9 RATIO; PROTHROMBIN TIME - PATIENT 29.4 SEC (9.8-11.6)
[2017-07-19 08:45] LABS: ALBUMIN 3.4 GM/DL (3.4-5.0); AST (GOT) 28 U/L (15-37); BICARBONATE 29.8 MEQ/L (21.0-32.0); BLOOD UREA NITROGEN 22 MG/DL (7-18); CALCIUM 8.7 MG/DL (8.5-10.1); CHLORIDE 101 MEQ/L (98-107); CREATININE 1.27 MG/DL (0.60-1.30); GLOMERULAR FILTRATION RATE 57 ML/MIN (>89); GLUCOSE,RANDOM 151 MG/DL (74-106); SODIUM (NA) 141 MEQ/L (136-145)
[2017-07-19 08:50] LABS: ALKALINE PHOSPHATASE 52 U/L (45-117); ALT (GPT) 29 U/L (12-78); TOTAL PROTEIN 6.5 GM/DL (6.4-8.2); TROPONIN I 0.24 NG/ML (0.02-0.05)
[2017-07-19] MEDS: FAMOTIDINE 20 MG TAB PO SCH ×2 (09:00→19:52)
--- NOTE | 2017-07-19 14:07 | EKG ---
Date Performed: 07/18/2017 Time Performed: 21:14:35 PTAGE: 66 years EKG: ATRIAL FIBRILLATION WITH RAPID VENTRICULAR RESPONSE WITH ABERRANT CONDUCTION OR VENTRICULAR PREMATURE COMPLEXES MARKED LEFT AXIS DEVIATION NONSPECIFIC ST & T-WAVE ABNORMALITY ABNORMAL ECG PREVIOUS TRACING : 02/05/2016 13.17 DOCTOR: Damir Allison Interpretating Date/Time 07/19/2017 14:04:43
[2017-07-19] MEDS ORDERED: OLANZapine ODT 10 MG TAB PO STA (23:42)
[2017-07-19] MEDS ORDERED: DIGOXIN 0.5 MG/2 ML VIAL IV PUSH ONE (23:45)
[2017-07-20] VITALS (16 sets, daily range): BP systolic 95–154; BP diastolic 57–104; PULSE 79–133; RESP 21–30; TEMP 97.5–98; O2SAT 93–98
[2017-07-20] MEDS: VANCOMYCIN INJ 1,250 MG in SODIUM CHLOR 0.9% 250 ML INJ 250 ML IV SCH ×2 (00:53→16:22)
[2017-07-20] MEDS: INSULIN NovoLIN REGULAR SUPPLEMENTAL SCALE SQ SCH ×5 (03:00→20:25)
[2017-07-20 03:23] LABS: HEMATOCRIT 41.9 % (39.0-51.0); HEMOGLOBIN 13.7 GM/DL (13.0-17.0); MEAN CORPUSCULAR HEMOGLOBIN 26.9 PG (27.0-34.0); MEAN CORPUSCULAR HGB CONC 32.8 % (32.0-36.0); MEAN PLATELET VOLUME 8.6 FL (7.0-11.0); PLATELET COUNT 207 TH/MM3 (150-450); RED BLOOD COUNT 5.11 MIL/MM3 (4.50-5.90); RED CELL DISTRIBUTION WIDTH 14.3 % (11.6-17.2); WHITE BLOOD COUNT 28.1 TH/MM3 (4.0-11.0)
[2017-07-20] MEDS: METOPROLOL TARTRATE 5 MG/5 ML VIAL IV PUSH SCH ×2 (03:31→06:28)
[2017-07-20 03:48] LABS: ALBUMIN 2.9 GM/DL (3.4-5.0); ALT (GPT) 34 U/L (12-78); AST (GOT) 31 U/L (15-37); BICARBONATE 29.6 MEQ/L (21.0-32.0); BLOOD UREA NITROGEN 29 MG/DL (7-18); CALCIUM 8.1 MG/DL (8.5-10.1); CHLORIDE 103 MEQ/L (98-107); GLOMERULAR FILTRATION RATE 67 ML/MIN (>89); GLUCOSE,RANDOM 134 MG/DL (74-106); SODIUM (NA) 143 MEQ/L (136-145)
[2017-07-20 03:51] LABS: ALKALINE PHOSPHATASE 50 U/L (45-117); TOTAL PROTEIN 5.5 GM/DL (6.4-8.2)
[2017-07-20 03:53] LABS: INTERNATIONAL NORMALIZED RATIO 2.7 RATIO; PROTHROMBIN TIME - PATIENT 27.4 SEC (9.8-11.6)
[2017-07-20] MEDS: CHLORHEXIDINE GLUCONATE 2 % 1 PACK (2 CLOTHS) TOP SCH (04:00)
[2017-07-20] MEDS: metroNIDAZOLE 500 MG INJ 100 ML IV SCH ×4 (04:36→23:37)
[2017-07-20] MEDS: AZTREONAM INJ 1,000 MG in SODIUM CHLORIDE 0.9% INJ 100 ML IV SCH ×3 (05:42→22:35)
[2017-07-20] MEDS ORDERED: ONDANSETRON ODT 4 MG TAB PO PRN (06:45)
--- NOTE | 2017-07-20 06:46 | HHI.CCPN ---
Subjective Remarks/Hospital Course This is a 66-year-old male with a history of cardiomyopathy with an EF of 25% as well as a prior CVA in 2009 who presents with a 3 day history of abdominal pain, nausea, diarrhea. The patient states that he felt like it was probably food poisoning. In addition to this he has experienced worsening shortness of breath over the last 1 day. He presented the emergency department where he was found to be in atrial fibrillation with rapid ventricular response and a heart rate greater than 180. He was given IV Lopressor and his heart rate improved. He has laboratory evidence significant for a white count of 37,000, creatinine of 1.3, T bili of 3.5, troponin of 0.4, CRP elevated at 2.37, BNP elevated at 1386, lactate of 4.2. He denies any chest pain, palpitations, syncope, dyspnea on exertion. He denies any changes to his medical history. He states that he was given a prescription for Lasix a long time ago if his weight increased more than 1-2 pounds a day, but he has not needed this medication a long time his weight is remained stable. He has not experienced any recent weight gain or weight loss. He does endorse fever and chills with his most recent complaints of abdominal pain and nausea. The remainder of his review of systems is negative. Subjective: 07/19: 0650-The patient is refusing a.m. labs, convinced to allow participation in labs to identify therapeutic INR and appropriate antibiotic coverage. Heart rate 110-120's, no dyspnea noted. 07/20: Afebrile. Yesterday patient refusing labs, refusing meds, convined to allow obtainment of labs secondary to Coumadin and monitoring INR. Overnight the patient had A. fib RVR 140s received digoxin 0.51 dose with resolution patient has been placed on metoprolol 25 mg every 8 hours. 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 Cardiology has been consulted. Persistent leukocytosis despite empiric antibiotics. No cultures have been resulted, ID has been consulted. Patient had one episode of nausea last night resolved with Zofran, gallbladder ultrasound pending. Objective Vital Signs Date Time Temp Pulse Resp B/P (MAP) Pulse Ox O2 Delivery O2 Flow Rate FiO2 07/20/17 04:14 82 07/20/17 04:00 97.8 23 102/57 (72) 97 07/19/17 19:38 Nasal Cannula 4.00 Result Diagram: 07/20/17 0240 07/20/17 0240 Imaging Last Impressions Abdomen/Pelvis CT 07/19/172126 Signed Impressions: CONCLUSION: 1. Densely calcified prostate, renal cysts and chronic atherosclerotic calcifi cations. 2. Otherwise unremarkable. Chest X-Ray 07/18/172126 Signed Impressions: CONCLUSION: 1. No acute intrathoracic disease. 2. Hyperaeration with chronic interstitial changes suggestive of COPD. Objective Remarks GENERAL: Middle-aged appearing male, lying in bed, conversant, no acute distress HEENT: Normocephalic. Atraumatic. Pupils equal, round, reactive, conjugate. Mucous membranes are moist NECK: Trachea is midline. There is no JVD. CHEST: Equal chest rise. Nasal cannula oxygen. CARDIOVASCULAR: Tachycardic rate, irregularly irregular rhythm. Appears A. fib by telemetry. Heart rate is in the 90'son my evaluation ABDOMEN: Soft, nontender, nondistended. No guarding. MUSCULOSKELETAL: Pulses 2+. No peripheral edema. Extremities are warm and well -perfused. Adequate cap refill. NEUROLOGICAL: RASS 0. CAM -. GCS 15. Follows commands. No focal deficits. A/P Assessment and Plan Assessment: 66-year-old male with cardiomyopathy and EF of 25%'s as well as prior CVA in 2009 who presents with acute onset nausea, diarrhea as well as atrial fibrillation with rapid ventricular response. It is unclear at the present time if his Afib RVR is the ultimate cause which led to cardiogenic shock and abdominal pain, or if severe acute gastroenteritis led to electrolyte and intravascular volume abnormalities which led to afib RVR. on bedside critical care echo, it appears that the patient has a dilated IVC without respiratory variation and does not need significantly more volume resuscitation. will admit to ICU, keep on iv abx, check stool cultures and blood cultures and trend lab data. highly complex with multiple problems and multiorgan dysfunction secondary to his acute illness. Plan by systems: Neurologic: Frequent neurochecks Respiratory: Wean oxygen by nasal cannula for goal SPO2 greater than 90% Cardiovascular: Atrial fibrillation with rapid ventricular response Elevated troponin, likely type II NSTEMI secondary to demand ischemia Severely elevated BNP Cardiomyopathy, EF 25% Congestive heart failure Metoprolol 25 mg every 8 hours Lopressor 5 mill grams IV q. 5 minutes as needed, goal heart rate less than 110 Trend troponins Unlikely to be acute coronary syndrome given lack of chest pain or other symptoms. Will not add additional heparin infusion. Already anticoagulated with Coumadin Trend BNP- 667 Cardiology consulted-appreciate recommendations Renal: Acute kidney injury Likely secondary to either poor renal perfusion from cardiogenic shock from tachydysrhythmia versus acute gastroenteritis with volume shift Trend creatinine on daily BMP -- Strict I/Os FEN/GI: Possible acute gastroenteritis Nausea/vomiting Diarrhea Elevated T bili Lactic acidosis Advanced heart healthy diet as tolerated ICU electrolyte protocol Trend CMP 07/20-obtain gallbladder ultrasound Unclear etiology of elevated T bili. May be secondary to liver dysfunction from poor perfusion CT abdomen/pelvis 07/19-negative for acute disease Trend lactates-currently 4.2 Zofran for nausea Heme/ID: Possible acute gastroenteritis Leukocytosis Send stool for culture Blood cultures Urine culture Vancomycin with pharmacy dosing Aztreonam, penicillin allergy Flagyl Obtain CBC Endocrine: Diabetes -- SSI Prophylaxis: GI Prophylaxis Pepcid DVT Prophylaxis -- SCDs Hold Coumadin and check daily INRs. INR 2.7 today. Check INR in am and resume home dosing of Coumadin Lines: Peripheral IVs [facility]po: [facility] transfer to [facility] upon bed availability D/W Dr. Vasquez Physician Rajni Trinh MD July 20, 2017 06:46
--- NOTE | 2017-07-20 12:14 | PD.ID.CON ---
History of Present Illness Service ID Consult Requested By Reason for Consult Evaluation and Mment of persistent leucocytosis. Primary Care Physician Non-Staff Diagnoses: History of Present Illness is a 66 y/o CM with PMHx of cardiomyopathy with ejection fraction of 25%, CVA in 2009. Patient reports that he had a CBC done as outpatient approximately 2 weeks back which was reportedly normal. Patient reports having no prior history of leukocytosis or any hematological malignancies. With this background patient presented to the hospital with a 3 day history of abdominal pain, nausea. Patient denies any history of diarrhea as reported in the chart by other physicians. Patient and his adamantly deny any diarrhea prior to presentation. In addition to the shortness of breath over the last 1 day prior to admission. He presented to the emergency department was found to be in atrial fibrillation with rapid ventricular response and a heart rate of 180. He was given IV Lopressor and his heart rate improved. On admission his WBC count was 37,000, creatinine of 1.3, total bili of 3.5, troponin of 0.4 and his CRP was elevated at 2.37. His BNP is elevated at 1386 with a lactate of 4.2. He denied any chest pain or abdominal pain on admission. Patient reports he has a prescription for Lasix and he has not experienced any recent weight gain or weight loss. He does endorse fever and chills with his most recent complaints of abdominal pain and nausea. The remainder of his review of systems is negative. At the time of my evaluation patient is in the ICU currently not on any pressors. He is currently on oxygen 2 L with saturations 98 200%. He is sitting up in bed and provided most of the history himself but does not appear to be a reliable historian. He has flight of thoughts and was inappropriately sarcastic at times. Review of Systems ROS Limitations: Poor Historian Constitutional: COMPLAINS OF: Fever, Chills, DENIES: Diaphoretic episodes, Fatigue, Weight gain, Weight loss, Dizziness, Change in appetite, Night Sweats Endocrine: DENIES: Heat/cold intolerance, Polydipsia, Polyuria, Polyphagia Eyes: DENIES: Blurred vision, Diplopia, Eye inflammation, Eye pain, Vision loss , Photosensitivity, Double Vision Ears, nose, mouth, throat: DENIES: Tinnitus, Hearing loss, Vertigo, Nasal discharge, Oral lesions, Throat pain, Hoarseness, Ear Pain, Running Nose, Epistaxis, Sinus Pain, Toothache, Odynophagia Respiratory: COMPLAINS OF: Shortness of breath, DENIES: Apneas, Cough, Snoring , Wheezing, Hemoptysis, Sputum production Cardiovascular: DENIES: Chest pain, Palpitations, Syncope, Dyspnea on Exertion , PND, Lower Extremity Edema, Orthopnea, Claudication Gastrointestinal: DENIES: Abdominal pain, Black stools, Bloody stools, Constipation, Diarrhea, Nausea, Vomiting, Difficulty Swallowing, Anorexia Genitourinary: DENIES: Sexual dysfunction, Urinary frequency, Urinary incontinence, Urgency, Hematuria, Dysuria, Nocturia, Penile Discharge, Testicular Pain, Testicular Swelling Musculoskeletal: DENIES: Joint pain, Muscle aches, Stiffness, Joint Swelling, Back pain, Neck pain Integumentary: DENIES: Abnormal pigmentation, Nail changes, Pruritus, Rash Hematologic/lymphatic: DENIES: Bruising, Lymphadenopathy Immunologic/allergic: DENIES: Eczema, Urticaria Neurologic: DENIES: Abnormal gait, Headache, Localized weakness, Paresthesias, Seizures, Speech Problems, Tremor, Poor Balance Psychiatric: DENIES: Anxiety, Confusion, Mood changes, Depression, Hallucinations, Agitation, Suicidal Ideation, Homicidal Ideation, Delusions Except as stated in HPI: all other systems reviewed are Neg Past Family Social History Allergies: Coded Allergies: penicillin G (Unverified Allergy, Severe, Rash, 07/18/17) Past Medical History Atrial fibrillation Cardiomyopathy with an EF of 25% Hypertension Prior CVA in 2009 Past Surgical History Right knee surgery as a teenager Tonsillectomy Reported Medications Reported Meds & Active Scripts Active Reported Warfarin 6 Mg Tab 6 Mg PO DAILY Warfarin 1 Mg Tab 1 Mg PO EVERY OTHER DAY Aspirin 81 Mg Chew 81 Mg CHEW DAILY Lisinopril-Hctz 20-25 Mg Tab 1 Tab PO DAILY Active Ordered Medications Current Medications Medications (Trade) Dose Ordered Sig/Michael Route Start Time Stop Time Status Last Admin (NS Flush) 2 ml UNSCH PRN IVF 07/18/17 21:45 Metronidazole 100 ml @ 100 mls/hr Q6H IV 07/19/17 04:45 07/20/17 16:22 Pharmacy Profile Note 0 ml @ 0 mls/hr UNSCH OTHER 07/19/17 01:15 Aztreonam 1000 mg/ Sodium Chloride 100 ml @ 200 mls/hr Q8H IV 07/19/17 06:45 07/20/17 16:22 (Lopressor Inj) 5 mg Q5M PRN IV PUSH 07/19/17 01:15 07/19/17 19:41 Potassium Chloride 100 ml @ 50 mls/hr Q2H PRN IV 07/19/17 01:15 Potassium Chloride 100 ml @ 50 mls/hr Q2H PRN IV 07/19/17 01:15 (K-Lyte Cl Eff) 50 meq UNSCH PRN PO 07/19/17 01:15 Potassium Chloride 100 ml @ 25 mls/hr UNSCH PRN IV 07/19/17 01:15 Potassium Chloride 100 ml @ 50 mls/hr Q2H PRN IV 07/19/17 01:15 Magnesium Sulfate 4 gm/Sodium Chloride 100 ml @ 50 mls/hr UNSCH PRN IV 07/19/17 01:15 (Mag-Ox) 800 mg UNSCH PRN PO 07/19/17 01:15 Magnesium Sulfate 2 gm/Sodium Chloride 100 ml @ 50 mls/hr UNSCH PRN IV 07/19/17 01:15 (K-Phos) 2,000 mg Q4H PRN PO 07/19/17 01:15 Sodium Phosphate 30 mmol/Sodium Chloride 250 ml @ 42 mls/hr UNSCH PRN IV 07/19/17 01:15 (K-Phos) 2,000 mg UNSCH PRN PO/TUBE 07/19/17 01:15 Potassium Phosphate 30 mmol/ Sodium Chloride 260 ml @ 42 mls/hr UNSCH PRN IV 07/19/17 01:15 (D50w (Vial) Inj) 25 ml UNSCH PRN IV PUSH 07/19/17 01:15 (NovoLIN R SUPPLEMENTAL SCALE) 1 ACHS AND 3AM SQ 07/19/17 03:00 07/19/17 12:00 (Pepcid) 20 mg Q12HR PO 07/19/17 09:00 07/20/17 16:22 (Duoneb Neb) 1 ampule Q2HR NEB PRN INH 07/19/17 01:15 ([facility]) 1 Q361D XX 07/19/17 01:15 (Chlorhexidine 2% Cloth) 3 pack Taper DAILY@04 TOP 07/19/17 04:00 07/15/18 03:59 07/20/17 04:00 (Chlorhexidine 2% Cloth) 3 pack UNSCH PRN TOP 07/19/17 01:15 Vancomycin HCl 1250 mg/Sodium Chloride 262.5 ml @ 262.5 mls/ hr Q18H IV 07/20/17 00:00 07/20/17 16:22 ([facility] Ordered [facility] Info) SPECIFIC LAB TO BE MARIO... ONCE ONCE .XX 07/21/17 11:45 07/21/17 11:46 (Melatonin) 5 mg HS PO 07/19/17 23:45 07/20/17 00:00 (Zofran Odt) 4 mg Q6H PRN PO 07/20/17 06:45 (Lopressor) 25 mg Q8HR PO 07/20/17 14:00 07/20/17 16:21 Family History Reviewed and found to be noncontributory to his acute illness. Social History Former smoker. Denies EtOH. Denies drugs of abuse. Physical Exam Vital Signs Vital Signs Date Time Temp Pulse Resp B/P (MAP) Pulse Ox O2 Delivery O2 Flow Rate FiO2 07/20/17 10:00 79 07/20/17 08:00 81 07/20/17 08:00 97.5 81 21 109/64 (79) 98 07/20/17 06:00 90 07/20/17 04:14 82 07/20/17 04:00 97.8 87 23 102/57 (72) 97 07/20/17 03:00 102 23 154/99 (117) 96 07/20/17 02:00 107 22 146/98 (114) 97 07/20/17 02:00 99 07/20/17 01:00 108 30 138/104 (115) 96 07/20/17 00:04 98.0 124 21 141/92 (108) 97 07/20/17 00:00 133 07/19/17 23:01 120 20 139/95 (110) 99 07/19/17 22:00 139 18 139/113 (122) 97 07/19/17 22:00 148 07/19/17 21:12 130 19 128/98 (108) 97 07/19/17 20:00 127 19 135/109 (118) 95 07/19/17 20:00 138 07/19/17 19:40 98.7 123 18 129/106 (114) 97 07/19/17 19:38 97 Nasal Cannula 4.00 07/19/17 19:37 148 21 143/112 (122) 97 07/19/17 19:02 129 24 136/97 (110) 91 07/19/17 18:41 148 07/19/17 18:00 117 07/19/17 16:00 98.1 103 15 115/77 (90) 98 07/19/17 16:00 103 07/19/17 14:00 108 Physical Exam GENERAL: This is a well-nourished, well-developed patient, in no apparent distress. SKIN: No rashes, ecchymoses or lesions. Cool and dry. HEAD: Atraumatic. Normocephalic. No temporal or scalp tenderness. EYES: Pupils equal round and reactive. Extraocular motions intact. No scleral icterus. No injection or drainage. ENT: Nose without bleeding, purulent drainage or septal hematoma. Throat without erythema, tonsillar hypertrophy or exudate. Uvula midline. Airway patent. NECK: Trachea midline. No JVD or lymphadenopathy. Supple, nontender, no meningeal signs. CARDIOVASCULAR: Regular rate and rhythm without murmurs, gallops, or rubs. RESPIRATORY: Clear to auscultation. Breath sounds equal bilaterally. No wheezes , rales, or rhonchi. GASTROINTESTINAL: Abdomen soft, non-tender, nondistended. No hepato-splenomegaly , or palpable masses. No guarding. MUSCULOSKELETAL: Extremities without clubbing, cyanosis, or edema. No joint tenderness, effusion, or edema noted. No calf tenderness. Negative Homans sign bilaterally. NEUROLOGICAL: Awake and alert. Cranial nerves II through XII intact. Motor and sensory grossly within normal limits. Five out of 5 muscle strength in all muscle groups. Normal speech. Psych cooperative IV line sites with no evidence of infection. Laboratory Laboratory Tests Test 07/19/17 14:20 07/19/17 20:33 07/20/17 02:40 07/20/17 07:15 Troponin I 0.12 0.11 0.11 White Blood Count 28.1 Red Blood Count 5.11 Hemoglobin 13.7 Hematocrit 41.9 Mean Corpuscular Volume 82.0 Mean Corpuscular Hemoglobin 26.9 Mean Corpuscular Hemoglobin Concent 32.8 Red Cell Distribution Width 14.3 Platelet Count 207 Mean Platelet Volume 8.6 Prothrombin Time 27.4 Prothromb Time International Ratio 2.7 Activated Partial Thromboplast Time 38.0 Blood Urea Nitrogen 29 Creatinine 1.10 Random Glucose 134 Total Protein 5.5 Albumin 2.9 Calcium Level 8.1 Alkaline Phosphatase 50 Aspartate Amino Transf (AST/SGOT) 31 Alanine Aminotransferase (ALT/SGPT) 34 Total Bilirubin 2.0 Sodium Level 143 Potassium Level 3.7 Chloride Level 103 Carbon Dioxide Level 29.6 Anion Gap 10 Estimat Glomerular Filtration Rate 67 B-Type Natriuretic Peptide 667 Lactic Acid Level 2.0 Date/Time Source Procedure Growth Status 07/18/17 21:30 Blood Peripheral Aerobic Blood Culture - Preliminary NO GROWTH IN 2 DAYS Resulted 07/18/17 21:30 Blood Peripheral Anaerobic Blood Culture - Preliminary NO GROWTH IN 2 DAYS Resulted 07/18/17 23:10 Urine Clean Catch Urine Culture - Final 50-100,000 CFU/ML MIXED GRAM POSITIVE... Complete Result Diagram: 07/20/17 0240 07/20/17 0240 Imaging Last Impressions Gall Bladder Ultrasound 07/20/17 0000 Signed Impressions: CONCLUSION: 1. Unremarkable gallbladder with no evidence of cholelithiasis. Abdomen/Pelvis CT 07/19/172126 Signed Impressions: CONCLUSION: 1. Densely calcified prostate, renal cysts and chronic atherosclerotic calcifi cations. 2. Otherwise unremarkable. Chest X-Ray 07/18/172126 Signed Impressions: CONCLUSION: 1. No acute intrathoracic disease. 2. Hyperaeration with chronic interstitial changes suggestive of COPD. Assessment and Plan Assessment and Plan Persistent high-grade leukocytosis present on admission. Denies prior history of leukocytosis or any known hematological malignancies. History of nausea and vomiting on admission with no history of diarrhea. Possible gastroenteritis versus A. fib related mild ischemic colitis. Coronary artery disease with ejection fraction of 25%, cardiomyopathy Recommendations: Check pro-calcitonin Continue Azactam IV Continue Vanco IV Continue Flagyl Follow cultures Follow clinically Discussed with Dr. guidry. If leukocytosis persists will consider hematological workup and hematology consult Jennie De Guzman MD July 20, 2017 12:14
--- NOTE | 2017-07-20 13:28 | RADRPT ---
EXAM DATE: 07/20/2017 1:14 PM EDT AGE/SEX: 66 years / Male INDICATIONS: Nausea and vomiting. CLINICAL DATA: This is the patient's initial encounter. Patient reports that signs and/or symptoms h ave been present for 3 days and indicates a pain score of 1/10. MEDICAL/SURGICAL HISTORY: Stroke. Hypertension. Cardiomyopathy. Atrial fibrillation. Tonsillectom y. Knee surgery. COMPARISON: No prior [facility] exams available for comparison MEASUREMENTS (cm x cm x cm): Liver:__ 12.6 cm cm length Common Bile Duct:__ 3mm FINDINGS: Liver: Normal echotexture without focal lesion or ductal dilatation. Portal Vein: Hepatopedal flow seen in portal vein. Common Duct: No intraluminal mass or stone visualized. Gallbladder: Demonstrates no wall thickening or pericholecystic fluid. No stones visualized. Pancreas: The visualized portions are within normal limits Right Kidney: No mass or hydronephrosis Other: None. CONCLUSION: 1. Unremarkable gallbladder with no evidence of cholelithiasis. Electronically signed by: Doe Rubalacva MD 07/20/2017 1:26 PM EDT
--- NOTE | 2017-07-20 14:50 | MB ---
cc: Feliciano Vasquez MD DATE: 07/20/2017 HISTORY OF PRESENT ILLNESS: Daniel is a pleasant 66-year-old gentleman previously followed by Dr. Silverman for nonischemic cardiomyopathy and atrial fibrillation. He notes he had a heart catheterization approximately 10 years ago, which showed no significant coronary disease. He presents to the ER with chief complaint of dyspnea. Also complained of nausea, vomiting, and abdominal pain. Otherwise, denies any fevers, chills, cough, GI or bleeding, PND, orthopnea, syncope or dizziness. PAST MEDICAL HISTORY: Includes AFib, cardiomyopathy, hypertension, CVA in 2010, tonsillectomy. SOCIAL HISTORY: Denies tobacco or alcohol use. ALLERGIES: PENICILLIN G. MEDICATIONS: 1. Warfarin 6 mg daily alternating with 1 mg every other day. 2. Aspirin 81 mg a day. 3. Lisinopril/hydrochlorothiazide 20/25 mg daily. MEDICATIONS IN THE HOSPITAL: 1. Metoprolol 25 mg q.8 hours. 2. Vancomycin. 3. Melatonin 5 mg at bedtime. 4. Famotidine 20 mg q.12 hours. 5. Aztreonam. 6. Metronidazole. 7. Potassium supplementation. 8. Magnesium supplementation. PHYSICAL EXAMINATION: VITAL SIGNS: Blood pressure 109/64, respiratory rate 21, pulse 81, temperature 97.5. GENERAL: He is alert and oriented x 3, in no acute distress. NECK: Supple. No JVD or bruit. CARDIOVASCULAR: S1, S2. No murmurs, rubs or gallops. LUNGS: Clear to auscultation bilaterally. ABDOMEN: Soft, nontender, and nondistended with positive bowel sounds. EXTREMITIES: No lower extremity edema. LABORATORY DATA: White count 28.1, hemoglobin 13.7, hematocrit 41.9, platelet count 207. INR is 2.7, initially is 3.9 in the ER. Sodium 143, potassium 3.7, chloride 101, bicarbonate 29.8, BUN 22, creatinine 1.27, glucose 151. Lactic acid 3.9, AST 20, ALT 29. Troponin 0.24, followed by 0.12 and 0.11. BNP is 1431. Repeat BNP today is 667. DIAGNOSTIC STUDIES: Chest x-ray shows no acute intrathoracic disease, hyperaeration with chronic interstitial changes suggestive of COPD. Abdominal pelvis CT shows densely calcified prostate, renal cysts and chronic atherosclerotic calcifications. Ultrasound of the gallbladder shows unremarkable gallbladder with no evidence of cholelithiasis. EKG: Atrial fibrillation at a rate of 182 beats per minute, left anterior fascicular block, nonspecific ST-T wave changes, 1-[address] segment depression in the anterolateral leads. Blood cultures are negative at 2 days. Urine culture growing out 50-100,000 gram-positive. DIAGNOSES: 1. Atrial fibrillation with rapid ventricular response. 2. Nonischemic cardiomyopathy. 3. Non-ST elevation myocardial infarction. 4. Elevated white count. 5. History of cerebrovascular accident. 6. Decompensated congestive heart failure. 7. Lactic acidosis. DISCUSSION: At this point in time, it appears that the patient's rapid ventricular response is secondary to a primary event, possibility an infection. His heart rate is currently controlled and he is therapeutically anticoagulated. I suspect his decompensated congestive heart failure and elevated troponin are secondary to hypoxia and high demand from high heart rate and having cardiomyopathy and ability to compensate by increasing stroke volume. He states he feels much better today with rate control. He is hemodynamically stable. He appears comfortable. He is asymptomatic. His BNP is decreasing. He is therapeutically anticoagulated. I discussed the case with Dr. Baker and notified her of my assessment. I do think the patient can be transferred out to a telemetry bed. Otherwise, agree with metoprolol 25 mg q.8 hours, electrolyte repletion and once the patient is more stable, we will also add LIN inhibitor. We will monitor BNP, BMP trends and consider adding aldactone as well. MD FILIBERTO Pennington/EBONY , 02:11 PM , 02:49 PM
[2017-07-20] MEDS: METOPROLOL TARTRATE 25 MG TAB PO SCH ×2 (16:21→20:25)
[2017-07-20] MEDS: FAMOTIDINE 20 MG TAB PO SCH ×2 (16:22→20:25)
[2017-07-20] MEDS: MELATONIN 5 MG TAB PO SCH ×2 (20:25)
--- NOTE | 2017-07-20 23:38 | RADRPT ---
EXAM DATE: 07/20/2017 11:34 PM EDT AGE/SEX: 66 years / Male INDICATIONS: Thrombosis. CLINICAL DATA: This is the patient's initial encounter. Patient reports that signs and symptoms have been present for 1 day and indicates a pain score of 0/10. MEDICAL/SURGICAL HISTORY: Cardiovascular disease. Cardiomyopathy. Atrial Fibrillation. Dyspne a. CVA - 2009. Anticoagulant Therapy - Coumadin. Tonsillectomy. Knee surgery. COMPARISON: No prior exams available for comparison. TECHNIQUE: Venous ultrasound of both lower extremities was performed from the inguinal ligament to t he proximal calf. Real-time, color Doppler and spectral tracing, compression and augmentation techni ques were used. FINDINGS: Right Leg: There is normal compressibility of the deep venous system from the inguinal region to the proximal calf. No echogenic clot is seen in the lumen of the common femoral, femoral, popliteal, an d posterior tibial veins. There is a normal response of the venous system to proximal and distal aug mentation and respiration. Left Leg: There is normal compressibility of the deep venous system from the inguinal region to the proximal calf. No echogenic clot is seen in the lumen of the common femoral, femoral, popliteal, and posterior tibial veins. There is a normal response of the venous system to proximal and distal augm entation and respiration. CONCLUSION: 1. The study is negative for bilateral lower extremity deep venous thrombosis. Electronically signed by: Ryan Boyd MD 07/20/2017 11:37 PM EDT
[2017-07-21] VITALS (10 sets, daily range): BP systolic 97–160; BP diastolic 63–104; PULSE 73–107; RESP 15–22; TEMP 96.7–98.2; O2SAT 93–98
[2017-07-21] MEDS: INSULIN NovoLIN REGULAR SUPPLEMENTAL SCALE SQ SCH ×5 (03:00→21:00)
[2017-07-21] MEDS: CHLORHEXIDINE GLUCONATE 2 % 1 PACK (2 CLOTHS) TOP SCH (04:00)
[2017-07-21] MEDS: metroNIDAZOLE 500 MG INJ 100 ML IV SCH (04:18)
[2017-07-21] MEDS: METOPROLOL TARTRATE 25 MG TAB PO SCH (04:19)
[2017-07-21 05:34] LABS: AUTOMATED NEUTROPHIL # 12.5 TH/MM3 (1.8-7.7); BASOPHIL % 0.2 % (0.0-2.0); EOSINOPHIL # 0.1 TH/MM3 (0-0.4); EOSINOPHIL % 0.5 % (0.0-4.0); HEMATOCRIT 43.2 % (39.0-51.0); HEMOGLOBIN 14.4 GM/DL (13.0-17.0); LYMPH % 8.9 % (9.0-44.0); LYMPHOCYTE # 1.3 TH/MM3 (1.0-4.8); MEAN CELL VOLUME 82.9 FL (80.0-100.0); MEAN CORPUSCULAR HEMOGLOBIN 27.7 PG (27.0-34.0); MEAN CORPUSCULAR HGB CONC 33.4 % (32.0-36.0); MEAN PLATELET VOLUME 8.9 FL (7.0-11.0); MONO % 5.4 % (0.0-8.0); MONOCYTE # 0.8 TH/MM3 (0-0.9); PLATELET COUNT 198 TH/MM3 (150-450); WHITE BLOOD COUNT 14.7 TH/MM3 (4.0-11.0)
[2017-07-21] MEDS: AZTREONAM INJ 1,000 MG in SODIUM CHLORIDE 0.9% INJ 100 ML IV SCH (05:34)
[2017-07-21 05:36] LABS: INTERNATIONAL NORMALIZED RATIO 1.8 RATIO; PROTHROMBIN TIME - PATIENT 18.4 SEC (9.8-11.6)
[2017-07-21] MEDS: FAMOTIDINE 20 MG TAB PO SCH ×2 (08:02→21:45)
[2017-07-21 09:19] LABS: ALBUMIN 3.3 GM/DL (3.4-5.0); AST (GOT) 29 U/L (15-37); BICARBONATE 30.2 MEQ/L (21.0-32.0); BLOOD UREA NITROGEN 28 MG/DL (7-18); CALCIUM 8.4 MG/DL (8.5-10.1); CHLORIDE 104 MEQ/L (98-107); CREATININE 0.99 MG/DL (0.60-1.30); GLOMERULAR FILTRATION RATE 75 ML/MIN (>89); GLUCOSE,RANDOM 93 MG/DL (74-106); MAGNESIUM 2.3 MG/DL (1.5-2.5); SODIUM (NA) 143 MEQ/L (136-145)
[2017-07-21 09:20] LABS: ALT (GPT) 44 U/L (12-78)
[2017-07-21 09:29] LABS: ALKALINE PHOSPHATASE 52 U/L (45-117); FREE T4 0.95 NG/DL (0.76-1.46); PHOSPHORUS 1.7 MG/DL (2.5-4.9); TOTAL BILIRUBIN ADULT 1.9 MG/DL (0.2-1.0); TOTAL PROTEIN 6.1 GM/DL (6.4-8.2)
--- NOTE | 2017-07-21 09:47 | HHI.PR ---
Subjective Remarks Pt would like to go home today. States he feels "fine". Denies any CP/SOB/N/V/ abdominal pain. Discussed w RN, HR has been in the 90's. No concerns Objective Vitals Vital Signs Date Time Temp Pulse Resp B/P (MAP) Pulse Ox O2 Delivery O2 Flow Rate FiO2 07/21/17 09:11 93 Nasal Cannula 2.00 07/21/17 04:00 96.7 83 18 107/63 (78) 96 07/21/17 04:00 83 07/21/17 00:00 97.6 78 21 97/70 (79) 94 07/21/17 00:00 78 07/20/17 20:00 89 07/20/17 20:00 97.9 89 25 95/66 (76) 93 07/20/17 18:00 79 07/20/17 16:00 88 07/20/17 16:00 98.0 88 25 100/70 (80) 95 07/20/17 14:20 97 Nasal Cannula 3.00 07/20/17 14:00 105 07/20/17 14:00 97.8 105 23 96/60 (72) 94 07/20/17 12:00 82 07/20/17 10:00 79 I/O 07/20/17 07/20/17 07/20/17 07/21/17 07/21/17 07/21/17 07:00 15:00 23:00 07:00 15:00 23:00 Intake Total 662 ml 120 ml 710 ml 500 ml Output Total 220 ml 750 ml 1000 ml Balance 662 ml -100 ml -40 ml -500 ml Intake Oral 120 ml 360 ml 500 ml IV Total 662 ml 350 ml Output Urine Total 220 ml 750 ml 1000 ml Stool Total 0 ml # Voids 3 # Bowel Movements 0 0 0 Result Diagram: 07/21/17 0442 07/21/17 0810 Imaging Last Impressions Lower Extremity Ultrasound 07/20/17 0000 Signed Impressions: CONCLUSION: 1. The study is negative for bilateral lower extremity deep venous thrombosis. Gall Bladder Ultrasound 07/20/17 0000 Signed Impressions: CONCLUSION: 1. Unremarkable gallbladder with no evidence of cholelithiasis. Abdomen/Pelvis CT 07/19/172126 Signed Impressions: CONCLUSION: 1. Densely calcified prostate, renal cysts and chronic atherosclerotic calcifi cations. 2. Otherwise unremarkable. Chest X-Ray 07/18/172126 Signed Impressions: CONCLUSION: 1. No acute intrathoracic disease. 2. Hyperaeration with chronic interstitial changes suggestive of COPD. Objective Remarks GENERAL: Middle-aged appearing male,sitting up, eating breakfast, talkative CHEST:lungs are clear, no wheezing. CARDIOVASCULAR: irregularly irregular. HR in the 120's when pt talks then will go down to the low 100's and back up ABDOMEN: Soft, nontender, nondistended. No guarding. MUSCULOSKELETAL: moves extremities. A/P Assessment and Plan Assessment: 66-year-old male with cardiomyopathy and EF of 25%'s as well as prior CVA in 2009 who presents with acute onset nausea, diarrhea as well as atrial fibrillation with rapid ventricular response. It is unclear at the present time if his Afib RVR is the ultimate cause which led to cardiogenic shock and abdominal pain, or if severe acute gastroenteritis led to electrolyte and intravascular volume abnormalities which led to afib RVR. on bedside critical care echo, it appears that the patient has a dilated IVC without respiratory variation and does not need significantly more volume resuscitation. Atrial fibrillation with rapid ventricular response- Elevated troponin, likely type II NSTEMI secondary to demand ischemia Severely elevated BNP Cardiomyopathy, EF 25% Congestive heart failure will increase Metoprolol to 50 mg every 8 hours Lopressor 5 mill grams IV q. 5 minutes as needed, goal heart rate less than 110 resume Coumadin as INR 1.8 this morning and pharmacy has been consulted for assistance. Pt states he takes 6mg of coumadin daily but then add 1mg everyotherday Trend BNP- 667 Cardiology, Dr. Vasquez, following. I discussed the case w him and he agrees w increase in dose of metoprolol. Acute kidney injury resolved. monitor. -- Strict I/Os Possible acute gastroenteritis Nausea/vomiting Elevated T bili Lactic acidosis Advanced heart healthy diet as tolerated on ICU electrolyte protocol gallbladder ultrasound was unremarkable Unclear etiology of elevated T bili. May be secondary to liver dysfunction from poor perfusion CT abdomen/pelvis 07/19-negative for acute disease lactic acid now down to 2.0 Zofran for nausea Possible acute gastroenteritis Leukocytosis stool studies not available Blood cultures neg x 2 days Urine culture growing 50,000-100,000 mixed gram pos sedrick I discussed the case w Dr. De Guzman, infectious disease, and she has stopped all IV abx (flagyl, azactam,vanco) and would like to monitor pt 24hrs off abx. Pt's pro-calcitonin was neg. continue to monitor CBC Diabetes -- SSI DVT Prophylaxis -- SCDs/Coumadin has been resumed w pharmacy consult in place. Discharge Planning Transfer to med/surg floor. Pt needs to be monitored off abx for 24 hrs per ID recs. I have increased pt's metoprolol dose to 50mg po q8hrs and continue to monitor TELE. Consider adding low dose lisinopril in AM if able to tolerate it. Pt will need to f/u w cards and PCP post discharge. Zully De Los Santos MD Jul 21, 2017 09:47
--- NOTE | 2017-07-21 11:03 | PD.CARD.PN ---
Subjective Subjective Remarks alert in nad Objective Medications Current Medications Medications (Trade) Dose Ordered Sig/Michael Route Start Time Stop Time Status Last Admin (NS Flush) 2 ml UNSCH PRN IVF 07/18/17 21:45 (Lopressor Inj) 5 mg Q5M PRN IV PUSH 07/19/17 01:15 07/19/17 19:41 Potassium Chloride 100 ml @ 50 mls/hr Q2H PRN IV 07/19/17 01:15 Potassium Chloride 100 ml @ 50 mls/hr Q2H PRN IV 07/19/17 01:15 (K-Lyte Cl Eff) 50 meq UNSCH PRN PO 07/19/17 01:15 Potassium Chloride 100 ml @ 25 mls/hr UNSCH PRN IV 07/19/17 01:15 Potassium Chloride 100 ml @ 50 mls/hr Q2H PRN IV 07/19/17 01:15 Magnesium Sulfate 4 gm/Sodium Chloride 100 ml @ 50 mls/hr UNSCH PRN IV 07/19/17 01:15 (Mag-Ox) 800 mg UNSCH PRN PO 07/19/17 01:15 Magnesium Sulfate 2 gm/Sodium Chloride 100 ml @ 50 mls/hr UNSCH PRN IV 07/19/17 01:15 (K-Phos) 2,000 mg Q4H PRN PO 07/19/17 01:15 Sodium Phosphate 30 mmol/Sodium Chloride 250 ml @ 42 mls/hr UNSCH PRN IV 07/19/17 01:15 (K-Phos) 2,000 mg UNSCH PRN PO/TUBE 07/19/17 01:15 Potassium Phosphate 30 mmol/ Sodium Chloride 260 ml @ 42 mls/hr UNSCH PRN IV 07/19/17 01:15 (D50w (Vial) Inj) 25 ml UNSCH PRN IV PUSH 07/19/17 01:15 (NovoLIN R SUPPLEMENTAL SCALE) 1 ACHS AND 3AM SQ 07/19/17 03:00 07/19/17 12:00 (Pepcid) 20 mg Q12HR PO 07/19/17 09:00 07/21/17 08:02 (Duoneb Neb) 1 ampule Q2HR NEB PRN INH 07/19/17 01:15 ([facility] 1 Q361D XX 07/19/17 01:15 (Chlorhexidine 2% Cloth) 3 pack Taper DAILY@04 TOP 07/19/17 04:00 07/15/18 03:59 07/21/17 04:00 (Chlorhexidine 2% Cloth) 3 pack UNSCH PRN TOP 07/19/17 01:15 ([facility] Ordered Lab Info) SPECIFIC LAB TO BE MARIO... ONCE ONCE .XX 07/21/17 11:45 07/21/17 11:46 Future Hold (Melatonin) 5 mg HS PO 07/19/17 23:45 07/20/17 20:25 (Zofran Odt) 4 mg Q6H PRN PO 07/20/17 06:45 Pharmacy Profile Note 0 ml @ 0 mls/hr UNSCH OTHER 07/21/17 09:30 (Lopressor) 50 mg Q8HR PO 07/21/17 14:00 (Coumadin) 6 mg DAILY@16 PO 07/21/17 16:00 (Aspirin Chew) 81 mg DAILY CHEW 07/22/17 09:00 Vital Signs / I&O Vital Signs Date Time Temp Pulse Resp B/P (MAP) Pulse Ox O2 Delivery O2 Flow Rate FiO2 07/21/17 09:11 93 Nasal Cannula 2.00 07/21/17 08:00 95 07/21/17 08:00 97.6 95 22 160/72 (101) 95 07/21/17 04:00 96.7 83 18 107/63 (78) 96 07/21/17 04:00 83 07/21/17 00:00 97.6 78 21 97/70 (79) 94 07/21/17 00:00 78 07/20/17 20:00 89 07/20/17 20:00 97.9 89 25 95/66 (76) 93 07/20/17 18:00 79 07/20/17 16:00 88 07/20/17 16:00 98.0 88 25 100/70 (80) 95 07/20/17 14:20 97 Nasal Cannula 3.00 07/20/17 14:00 105 07/20/17 14:00 97.8 105 23 96/60 (72) 94 07/20/17 12:00 82 I/O 07/20/17 07/20/17 07/20/17 07/21/17 07/21/17 07/21/17 07:00 15:00 23:00 07:00 15:00 23:00 Intake Total 662 ml 120 ml 710 ml 500 ml Output Total 220 ml 750 ml 1000 ml Balance 662 ml -100 ml -40 ml -500 ml Intake Oral 120 ml 360 ml 500 ml IV Total 662 ml 350 ml Output Urine Total 220 ml 750 ml 1000 ml Stool Total 0 ml # Voids 3 # Bowel Movements 0 0 0 Physical Exam GENERAL: SKIN: Warm and dry. HEAD: Normocephalic. EYES: No scleral icterus. No injection or drainage. NECK: Supple, trachea midline. No JVD or lymphadenopathy. CARDIOVASCULAR: Regular rate and rhythm without murmurs, gallops, or rubs. RESPIRATORY: Breath sounds equal bilaterally. No accessory muscle use. GASTROINTESTINAL: Abdomen soft, non-tender, nondistended. MUSCULOSKELETAL: No cyanosis, or edema. BACK: Nontender without obvious deformity. No CVA tenderness. Laboratory Laboratory Tests Test 07/20/17 13:11 07/20/17 19:11 07/21/17 04:42 07/21/17 08:10 Procalcitonin 0.04 ng/mL 0.05 ng/mL Blood Smear Pathologist Review White Blood Count 14.7 TH/MM3 Red Blood Count 5.20 MIL/MM3 Hemoglobin 14.4 GM/DL Hematocrit 43.2 % Mean Corpuscular Volume 82.9 FL Mean Corpuscular Hemoglobin 27.7 PG Mean Corpuscular Hemoglobin Concent 33.4 % Red Cell Distribution Width 14.0 % Platelet Count 198 TH/MM3 Mean Platelet Volume 8.9 FL Neutrophils (%) (Auto) 85.0 % Lymphocytes (%) (Auto) 8.9 % Monocytes (%) (Auto) 5.4 % Eosinophils (%) (Auto) 0.5 % Basophils (%) (Auto) 0.2 % Neutrophils # (Auto) 12.5 TH/MM3 Lymphocytes # (Auto) 1.3 TH/MM3 Monocytes # (Auto) 0.8 TH/MM3 Eosinophils # (Auto) 0.1 TH/MM3 Basophils # (Auto) 0.0 TH/MM3 CBC Comment DIFF FINAL Differential Comment Hematology Comments Prothrombin Time 18.4 SEC Prothromb Time International Ratio 1.8 RATIO Activated Partial Thromboplast Time 30.1 SEC B-Type Natriuretic Peptide 308 PG/ML Blood Urea Nitrogen 28 MG/DL Creatinine 0.99 MG/DL Random Glucose 93 MG/DL Total Protein 6.1 GM/DL Albumin 3.3 GM/DL Calcium Level 8.4 MG/DL Phosphorus Level 1.7 MG/DL Magnesium Level 2.3 MG/DL Alkaline Phosphatase 52 U/L Aspartate Amino Transf (AST/SGOT) 29 U/L Alanine Aminotransferase (ALT/SGPT) 44 U/L Total Bilirubin 1.9 MG/DL Sodium Level 143 MEQ/L Potassium Level 3.6 MEQ/L Chloride Level 104 MEQ/L Carbon Dioxide Level 30.2 MEQ/L Anion Gap 9 MEQ/L Estimat Glomerular Filtration Rate 75 ML/MIN Free Thyroxine 0.95 NG/DL Thyroid Stimulating Hormone 3rd Gen 3.630 uIU/ML Assessment and Plan Problem List: (1) Cardiomyopathy ICD Codes: I42.9 - Cardiomyopathy, unspecified (2) Atrial fibrillation with RVR ICD Codes: I48.91 - Unspecified atrial fibrillation Status: Acute (3) HTN (hypertension) ICD Codes: I10 - Essential (primary) hypertension Assessment and Plan 1.) Afib - increase lopressor, restart coumadin, d/w Dr De Los Santos Problem Qualifiers (1) HTN (hypertension): Qualified Codes: I10 - Essential (primary) hypertension Feliciano Vasquez MD Jul 21, 2017 11:03
--- NOTE | 2017-07-21 11:22 | HHI.IDPN ---
Subjective Subjective Remarks is a 66 y/o CM with PMHx of cardiomyopathy with ejection fraction of 25%, CVA in 2010. Patient reports that he had a CBC done as outpatient approximately 2 weeks back which was reportedly normal. Patient reports having no prior history of leukocytosis or any hematological malignancies. With this background patient presented to the hospital with a 3 day history of abdominal pain, nausea. Patient denies any history of diarrhea as reported in the chart by other physicians. Patient and his adamantly deny any diarrhea prior to presentation. In addition to the shortness of breath over the last 1 day prior to admission. He presented to the emergency department was found to be in atrial fibrillation with rapid ventricular response and a heart rate of 180. He was given IV Lopressor and his heart rate improved. On admission his WBC count was 37,000, creatinine of 1.3, total bili of 3.5, troponin of 0.4 and his CRP was elevated at 2.37. His BNP is elevated at 1386 with a lactate of 4.2. He denied any chest pain or abdominal pain on admission. Patient reports he has a prescription for Lasix and he has not experienced any recent weight gain or weight loss. He does endorse fever and chills with his most recent complaints of abdominal pain and nausea. The remainder of his review of systems is negative. At the time of my evaluation patient is in the ICU currently not on any pressors. He is currently on oxygen 2 L with saturations 98 200%. He is sitting up in bed and provided most of the history himself but does not appear to be a reliable historian. He has flight of thoughts and was inappropriately sarcastic at times. Overnight events reviewed. No fever No rash No diarrhea Antibiotics Azactam IV Flagyl IV Lines Line sites with no e.o infection Past Medical History Past Medical History Atrial fibrillation Cardiomyopathy with an EF of 25% Hypertension Prior CVA in 2010 Past Surgical History Right knee surgery as a teenager Tonsillectomy Allergies: Coded Allergies: penicillin G (Unverified Allergy, Severe, Rash, 07/18/17) Objective . Vital Signs Date Time Temp Pulse Resp B/P (MAP) Pulse Ox O2 Delivery O2 Flow Rate FiO2 07/21/17 09:11 93 Nasal Cannula 2.00 07/21/17 08:00 95 07/21/17 08:00 97.6 95 22 160/72 (101) 95 07/21/17 04:00 96.7 83 18 107/63 (78) 96 07/21/17 04:00 83 07/21/17 00:00 97.6 78 21 97/70 (79) 94 07/21/17 00:00 78 07/20/17 20:00 89 07/20/17 20:00 97.9 89 25 95/66 (76) 93 07/20/17 18:00 79 07/20/17 16:00 88 07/20/17 16:00 98.0 88 25 100/70 (80) 95 07/20/17 14:20 97 Nasal Cannula 3.00 07/20/17 14:00 105 07/20/17 14:00 97.8 105 23 96/60 (72) 94 07/20/17 12:00 82 . Laboratory Tests Test 07/20/17 02:40 07/20/17 19:11 07/21/17 04:42 White Blood Count 28.1 TH/MM3 14.7 TH/MM3 Red Blood Count 5.11 MIL/MM3 5.20 MIL/MM3 Hemoglobin 13.7 GM/DL 14.4 GM/DL Hematocrit 41.9 % 43.2 % Mean Corpuscular Volume 82.0 FL 82.9 FL Mean Corpuscular Hemoglobin 26.9 PG 27.7 PG Mean Corpuscular Hemoglobin Concent 32.8 % 33.4 % Red Cell Distribution Width 14.3 % 14.0 % Platelet Count 207 TH/MM3 198 TH/MM3 Mean Platelet Volume 8.6 FL 8.9 FL Blood Smear Pathologist Review Neutrophils (%) (Auto) 85.0 % Lymphocytes (%) (Auto) 8.9 % Monocytes (%) (Auto) 5.4 % Eosinophils (%) (Auto) 0.5 % Basophils (%) (Auto) 0.2 % Neutrophils # (Auto) 12.5 TH/MM3 Lymphocytes # (Auto) 1.3 TH/MM3 Monocytes # (Auto) 0.8 TH/MM3 Eosinophils # (Auto) 0.1 TH/MM3 Basophils # (Auto) 0.0 TH/MM3 CBC Comment DIFF FINAL Differential Comment Hematology Comments Laboratory Tests Test 07/19/17 14:20 07/19/17 20:33 07/20/17 02:40 07/20/17 07:15 Troponin I 0.12 NG/ML 0.11 NG/ML 0.11 NG/ML Blood Urea Nitrogen 29 MG/DL Creatinine 1.10 MG/DL Random Glucose 134 MG/DL Total Protein 5.5 GM/DL Albumin 2.9 GM/DL Calcium Level 8.1 MG/DL Alkaline Phosphatase 50 U/L Aspartate Amino Transf (AST/SGOT) 31 U/L Alanine Aminotransferase (ALT/SGPT) 34 U/L Total Bilirubin 2.0 MG/DL Sodium Level 143 MEQ/L Potassium Level 3.7 MEQ/L Chloride Level 103 MEQ/L Carbon Dioxide Level 29.6 MEQ/L Anion Gap 10 MEQ/L Estimat Glomerular Filtration Rate 67 ML/MIN B-Type Natriuretic Peptide 667 PG/ML Lactic Acid Level 2.0 mmol/L Test 07/20/17 13:11 07/20/17 19:11 07/21/17 04:42 07/21/17 08:10 Procalcitonin 0.04 ng/mL 0.05 ng/mL B-Type Natriuretic Peptide 308 PG/ML Blood Urea Nitrogen 28 MG/DL Creatinine 0.99 MG/DL Random Glucose 93 MG/DL Total Protein 6.1 GM/DL Albumin 3.3 GM/DL Calcium Level 8.4 MG/DL Phosphorus Level 1.7 MG/DL Magnesium Level 2.3 MG/DL Alkaline Phosphatase 52 U/L Aspartate Amino Transf (AST/SGOT) 29 U/L Alanine Aminotransferase (ALT/SGPT) 44 U/L Total Bilirubin 1.9 MG/DL Sodium Level 143 MEQ/L Potassium Level 3.6 MEQ/L Chloride Level 104 MEQ/L Carbon Dioxide Level 30.2 MEQ/L Anion Gap 9 MEQ/L Estimat Glomerular Filtration Rate 75 ML/MIN Free Thyroxine 0.95 NG/DL Thyroid Stimulating Hormone 3rd Gen 3.630 uIU/ML Microbiology Date/Time Source Procedure Growth Status 07/18/17 21:30 Blood Peripheral Aerobic Blood Culture - Preliminary NO GROWTH IN 3 DAYS Resulted 07/18/17 21:30 Blood Peripheral Anaerobic Blood Culture - Preliminary NO GROWTH IN 3 DAYS Resulted 07/18/17 21:20 Blood Peripheral Aerobic Blood Culture - Preliminary NO GROWTH IN 3 DAYS Resulted 07/18/17 21:20 Blood Peripheral Anaerobic Blood Culture - Preliminary NO GROWTH IN 3 DAYS Resulted 07/18/17 23:10 Urine Clean Catch Urine Culture - Final 50-100,000 CFU/ML MIXED GRAM POSITIVE... Complete Imaging Last Impressions Lower Extremity Ultrasound 07/20/17 Signed Impressions: CONCLUSION: 1. The study is negative for bilateral lower extremity deep venous thrombosis. Gall Bladder Ultrasound 07/20/17 Signed Impressions: CONCLUSION: 1. Unremarkable gallbladder with no evidence of cholelithiasis. Abdomen/Pelvis CT 07/19/172126 Signed Impressions: CONCLUSION: 1. Densely calcified prostate, renal cysts and chronic atherosclerotic calcifi cations. 2. Otherwise unremarkable. Chest X-Ray 07/18/172126 Signed Impressions: CONCLUSION: 1. No acute intrathoracic disease. 2. Hyperaeration with chronic interstitial changes suggestive of COPD. Physical Exam GENERAL: This is a well-nourished, well-developed patient, in no apparent distress. SKIN: No rashes, ecchymoses or lesions. Cool and dry. HEAD: Atraumatic. Normocephalic. No temporal or scalp tenderness. EYES: Pupils equal round and reactive. Extraocular motions intact. No scleral icterus. No injection or drainage. ENT: Nose without bleeding, purulent drainage or septal hematoma. Throat without erythema, tonsillar hypertrophy or exudate. Uvula midline. Airway patent. NECK: Trachea midline. No JVD or lymphadenopathy. Supple, nontender, no meningeal signs. CARDIOVASCULAR: Regular rate and rhythm without murmurs, gallops, or rubs. RESPIRATORY: Clear to auscultation. Breath sounds equal bilaterally. No wheezes , rales, or rhonchi. GASTROINTESTINAL: Abdomen soft, non-tender, nondistended. No hepato-splenomegaly , or palpable masses. No guarding. MUSCULOSKELETAL: Extremities without clubbing, cyanosis, or edema. No joint tenderness, effusion, or edema noted. No calf tenderness. Negative Homans sign bilaterally. NEUROLOGICAL: Awake and alert. Cranial nerves II through XII intact. Motor and sensory grossly within normal limits. Five out of 5 muscle strength in all muscle groups. Normal speech. Psych cooperative IV line sites with no evidence of infection. Assessment & Plan Remarks Persistent high-grade leukocytosis present on admission. Denies prior history of leukocytosis or any known hematological malignancies. History of nausea and vomiting on admission with no history of diarrhea. Possible gastroenteritis versus A. fib related mild ischemic colitis. Coronary artery disease with ejection fraction of 25%, cardiomyopathy Recommendations: Normal pro-calcitonin DC Azactam IV DC Vanco IV DC Flagyl Follow cultures Follow clinically Discussed with observe off antibiotics. If no fever WBC trending down ok to DC home from ID standpoint. Will sign off please call back if any change in clinical condition or questions. Jennie De Guzman MD Jul 21, 2017 11:22
[2017-07-21] MEDS ORDERED: PHARMACY ORDERED LAB ONE (11:45)
[2017-07-21] MEDS ORDERED: MAGNESIUM HYDROXIDE SUSP 30 ML CUP PO PRN (13:30)
[2017-07-21] MEDS ORDERED: DOCUSATE SODIUM 50 MG/SENNA 8.6 MG TAB PO ONE (13:30)
[2017-07-21] MEDS ORDERED: DOCUSATE SODIUM 50 MG/SENNA 8.6 MG TAB PO PRN (13:30)
[2017-07-21] MEDS: POLYETHYLENE GLYCOL 17 GM PKG PO SCH (13:30)
[2017-07-21] MEDS: METOPROLOL TARTRATE 50 MG TAB PO SCH ×2 (13:32→21:45)
[2017-07-21 17:07] LABS: HEMOGLOBIN A1C 5.8 % (4.3-6.0)
[2017-07-21] MEDS: WARFARIN SOD 6 MG TAB PO SCH (17:39)
[2017-07-21] MEDS: MELATONIN 5 MG TAB PO SCH (21:45)
[2017-07-22] VITALS (10 sets, daily range): BP systolic 123–165; BP diastolic 78–95; PULSE 74–104; RESP 18–20; TEMP 97.4–98.6; O2SAT 93–99
[2017-07-22] MEDS: CHLORHEXIDINE GLUCONATE 2 % 1 PACK (2 CLOTHS) TOP SCH ×2 (04:00→23:00)
[2017-07-22] MEDS: INSULIN NovoLIN REGULAR SUPPLEMENTAL SCALE SQ SCH ×6 (04:16→21:45)
[2017-07-22] MEDS: METOPROLOL TARTRATE 50 MG TAB PO SCH ×4 (06:07→23:01)
[2017-07-22 06:48] LABS: HEMATOCRIT 42.4 % (39.0-51.0); HEMOGLOBIN 13.9 GM/DL (13.0-17.0); MEAN CORPUSCULAR HEMOGLOBIN 27.2 PG (27.0-34.0); MEAN CORPUSCULAR HGB CONC 32.7 % (32.0-36.0); MEAN PLATELET VOLUME 8.4 FL (7.0-11.0); PLATELET COUNT 223 TH/MM3 (150-450); RED BLOOD COUNT 5.11 MIL/MM3 (4.50-5.90); RED CELL DISTRIBUTION WIDTH 14.1 % (11.6-17.2); WHITE BLOOD COUNT 13.9 TH/MM3 (4.0-11.0)
[2017-07-22 07:11] LABS: INTERNATIONAL NORMALIZED RATIO 1.5 RATIO; PROTHROMBIN TIME - PATIENT 15.4 SEC (9.8-11.6)
[2017-07-22 07:18] LABS: ALBUMIN 2.6 GM/DL (3.4-5.0); ALKALINE PHOSPHATASE 45 U/L (45-117); ALT (GPT) 29 U/L (12-78); AST (GOT) 18 U/L (15-37); BICARBONATE 27.1 MEQ/L (21.0-32.0); BLOOD UREA NITROGEN 19 MG/DL (7-18); CHLORIDE 107 MEQ/L (98-107); GLOMERULAR FILTRATION RATE 96 ML/MIN (>89); GLUCOSE,RANDOM 94 MG/DL (74-106); SODIUM (NA) 143 MEQ/L (136-145); TOTAL BILIRUBIN ADULT 1.7 MG/DL (0.2-1.0); TOTAL PROTEIN 5.3 GM/DL (6.4-8.2)
[2017-07-22] MEDS: POLYETHYLENE GLYCOL 17 GM PKG PO SCH (08:51)
[2017-07-22] MEDS: FAMOTIDINE 20 MG TAB PO SCH ×2 (08:52→20:34)
[2017-07-22] MEDS: ASPIRIN 81 MG CHEW TAB CHEW SCH (08:52)
[2017-07-22] MEDS ORDERED: METO-309 PO (10:51)
[2017-07-22] MEDS ORDERED: SPIR25TA PO (10:51)
--- NOTE | 2017-07-22 10:52 | HHI.DCPOC ---
Discharge Care Plan Diagnosis: (1) Atrial fibrillation with RVR (2) Cardiomyopathy (3) Coronary artery disease Additional Problems See your PCP or middleware engineer within 1 week to have your coumadin levels checked and coumadin dose adjusted as warranted for your afib. Goals to Promote Your Health * To prevent worsening of your condition and complications * To maintain your health at the optimal level Directions to Meet Your Goals Take your medications as prescribed Follow your dietary instruction Follow activity as directed Keep your appointments as scheduled Take your immunizations and boosters as scheduled If your symptoms worsen call your PCP, if no PCP go to Urgent Care Center or Emergency Room Smoking is Dangerous to Your Health. Avoid second hand smoke Call the 24-hour hour crisis hotline for domestic abuse at Joey Marinelli MD Jul 22, 2017 10:51
--- NOTE | 2017-07-22 10:54 | HHI.DS ---
Discharge Summary Admission Date July 19, 2017 at 01:00 Discharge Date: Jul 23, 2017 Admitting Diagnosis Afib with RVR, Sepsis (1) Elevated troponin ICD Code: R74.8 - Abnormal levels of other serum enzymes (2) Coronary artery disease ICD Code: I25.10 - Atherosclerotic heart disease of [place] coronary artery without angina pectoris (3) Atrial fibrillation with RVR ICD Code: I48.91 - Unspecified atrial fibrillation Status: Acute (4) HTN (hypertension) ICD Code: I10 - Essential (primary) hypertension (5) Cardiomyopathy ICD Code: I42.9 - Cardiomyopathy, unspecified Procedures none Brief History - From Admission This is a 66-year-old male with a history of cardiomyopathy with an EF of 25% as well as a prior CVA in 2009 who presents with a 3 day history of abdominal pain, nausea, diarrhea. The patient states that he felt like it was probably food poisoning. In addition to this he has experienced worsening shortness of breath over the last 1 day. He presented the emergency department where he was found to be in atrial fibrillation with rapid ventricular response and a heart rate greater than 180. He was given IV Lopressor and his heart rate improved. He has laboratory evidence significant for a white count of 37,000, creatinine of 1.3, T bili of 3.5, troponin of 0.4, CRP elevated at 2.37, BNP elevated at 1386, lactate of 4.2. He denies any chest pain, palpitations, syncope, dyspnea on exertion. He denies any changes to his medical history. He states that he was given a prescription for Lasix a long time ago if his weight increased more than 1-2 pounds a day, but he has not needed this medication a long time his weight is remained stable. He has not experienced any recent weight gain or weight loss. He does endorse fever and chills with his most recent complaints of abdominal pain and nausea. The remainder of his review of systems is negative. CBC/BMP: 07/22/17 0606 07/22/17 0606 Significant Findings Laboratory Tests Test 07/19/17 14:20 07/19/17 20:33 07/20/17 02:40 07/20/17 07:15 Troponin I 0.12 NG/ML (0.02-0.05) 0.11 NG/ML (0.02-0.05) 0.11 NG/ML (0.02-0.05) White Blood Count 28.1 TH/MM3 (4.0-11.0) Mean Corpuscular Hemoglobin 26.9 PG (27.0-34.0) Prothrombin Time 27.4 SEC (9.8-11.6) Activated Partial Thromboplast Time 38.0 SEC (24.3-30.1) Blood Urea Nitrogen 29 MG/DL (7-18) Random Glucose 134 MG/DL (74-106) Total Protein 5.5 GM/DL (6.4-8.2) Albumin 2.9 GM/DL (3.4-5.0) Calcium Level 8.1 MG/DL (8.5-10.1) Total Bilirubin 2.0 MG/DL (0.2-1.0) Estimat Glomerular Filtration Rate 67 ML/MIN (>89) B-Type Natriuretic Peptide 667 PG/ML (0-100) Test 07/20/17 13:11 07/20/17 19:11 07/21/17 04:42 07/21/17 08:10 White Blood Count 14.7 TH/MM3 (4.0-11.0) Neutrophils (%) (Auto) 85.0 % (16.0-70.0) Lymphocytes (%) (Auto) 8.9 % (9.0-44.0) Neutrophils # (Auto) 12.5 TH/MM3 (1.8-7.7) Prothrombin Time 18.4 SEC (9.8-11.6) B-Type Natriuretic Peptide 308 PG/ML (0-100) Blood Urea Nitrogen 28 MG/DL (7-18) Total Protein 6.1 GM/DL (6.4-8.2) Albumin 3.3 GM/DL (3.4-5.0) Calcium Level 8.4 MG/DL (8.5-10.1) Phosphorus Level 1.7 MG/DL (2.5-4.9) Total Bilirubin 1.9 MG/DL (0.2-1.0) Estimat Glomerular Filtration Rate 75 ML/MIN (>89) Test 07/22/17 06:06 White Blood Count 13.9 TH/MM3 (4.0-11.0) Prothrombin Time 15.4 SEC (9.8-11.6) Blood Urea Nitrogen 19 MG/DL (7-18) Total Protein 5.3 GM/DL (6.4-8.2) Albumin 2.6 GM/DL (3.4-5.0) Calcium Level 8.0 MG/DL (8.5-10.1) Total Bilirubin 1.7 MG/DL (0.2-1.0) PE at Discharge hrt sounds rrr, no murmurs no LE edema awake, alert, unlabored breathing Hospital Course Pt was admitted to the ICU initially started on IV fluids, antibiotics. He was transferred to the main floor, ID discontinued abx and pt overall status improved. Bc's were neg. Given elevated troponin, CAD workup was pursued however not completed. Pt was not a safe candidate for treadmill stress test and MPI was aborted by patient due to anxiety. Pt refused heart cath offered by cardiology; Pt was counseled on the risks of undiagnosed CAD including WI, , and debility. Pt still refused heart cath and preferred outpatient f/u with cardiology. Pt has met maximal benefit from hospitalization and is clinically stable for discharge. Patient was informed to follow-up closely with cardiology outpatient, especially to get his INR rechecked. Pt Condition on Discharge: Stable Discharge Disposition: Discharge Home Discharge Time: <= 30 minutes Discharge Instructions DIET: Follow Instructions for: Heart Healthy Diet, Coumadin (Warfarin) Diet Fluid Restrictions: 1500 mL/daily Activities you can perform: Regular-No Restrictions Follow up Referrals: Cardiology - 1 Week with Feliciano Vasquez MD Cardiology PCP Follow-up - 1 Week PCP Follow-up New Medications: Atorvastatin (Atorvastatin) 40 Mg Tab 40 MG PO HS for Cholesterol Management, #30 TAB 0 Refills Spironolactone (Spironolactone) 25 Mg Tab 12.5 MG PO DAILY for heart failure, #30 TAB 0 Refills Metoprolol Tartrate (Lopressor) 50 Mg Tab 50 MG PO Q8HR for heart failure & afib, #90 TAB Continued Medications: Aspirin (Aspirin) 81 Mg Chew 81 MG CHEW DAILY, TAB 0 Refills Lisinopril-Hctz (Lisinopril-Hctz) 20-25 Mg Tab 1 TAB PO DAILY for Blood Pressure Management, #30 TAB 0 Refills Warfarin (Warfarin) 1 Mg Tab 1 MG PO EVERY OTHER DAY for Blood Clot Prevention, #30 TAB 0 Refills Warfarin (Warfarin) 6 Mg Tab 6 MG PO DAILY for Blood Clot Prevention, #30 TAB 0 Refills Joey Marinelli MD Jul 22, 2017 10:54
--- NOTE | 2017-07-22 12:08 | PD.CARD.PN ---
Subjective Subjective Remarks assymptomatic, alert in nad Objective Medications Current Medications Medications (Trade) Dose Ordered Sig/Michael Route Start Time Stop Time Status Last Admin (NS Flush) 2 ml UNSCH PRN IVF 07/18/17 21:45 (Lopressor Inj) 5 mg Q5M PRN IV PUSH 07/19/17 01:15 07/19/17 19:41 (D50w (Vial) Inj) 25 ml UNSCH PRN IV PUSH 07/19/17 01:15 (NovoLIN R SUPPLEMENTAL SCALE) 1 ACHS AND 3AM SQ 07/19/17 03:00 07/19/17 12:00 (Pepcid) 20 mg Q12HR PO 07/19/17 09:00 07/22/17 08:52 (Duoneb Neb) 1 ampule Q2HR NEB PRN INH 07/19/17 01:15 [place] [place] 1 Q361D XX 07/19/17 01:15 (Chlorhexidine 2% Cloth) 3 pack Taper DAILY@04 TOP 07/19/17 04:00 07/15/18 03:59 07/21/17 04:00 (Chlorhexidine 2% Cloth) 3 pack UNSCH PRN TOP 07/19/17 01:15 (Melatonin) 5 mg HS PO 07/19/17 23:45 07/21/17 21:45 (Zofran Odt) 4 mg Q6H PRN PO 07/20/17 06:45 Pharmacy Profile Note 0 ml @ 0 mls/hr UNSCH OTHER 07/21/17 09:30 (Lopressor) 50 mg Q8HR PO 07/21/17 14:00 07/22/17 06:07 (Coumadin) 6 mg DAILY@16 PO 07/21/17 16:00 07/21/17 17:39 (Aspirin Chew) 81 mg DAILY CHEW 07/22/17 09:00 07/22/17 08:52 (Miralax) 17 gm DAILY PO 07/21/17 13:30 07/22/17 08:51 (Ileana-Colace) 1 tab BID PRN PO 07/21/17 13:30 (Milk Of Magnesia Liq) 30 ml DAILY PRN PO 07/21/17 13:30 Vital Signs / I&O Vital Signs Date Time Temp Pulse Resp B/P (MAP) Pulse Ox O2 Delivery O2 Flow Rate FiO2 07/22/17 08:00 97.7 79 20 138/84 (102) 96 07/22/17 04:25 97.4 80 18 123/78 (93) 93 07/22/17 04:00 81 07/22/17 00:00 74 07/21/17 23:35 98.0 73 18 111/69 (83) 95 07/21/17 20:47 98.2 91 18 142/77 (98) 96 07/21/17 20:00 95 07/21/17 18:00 97.6 75 18 123/84 (97) 95 07/21/17 17:28 Nasal Cannula 2.00 07/21/17 16:00 97.8 99 20 148/104 (119) 97 07/21/17 16:00 99 I/O 07/21/17 07/21/17 07/21/17 07/22/17 07/22/17 07/22/17 07:00 15:00 23:00 07:00 15:00 23:00 Intake Total 500 ml 500 ml 0 ml Output Total 1000 ml 175 ml Balance -500 ml 500 ml -175 ml Intake Oral 500 ml 0 ml IV Total 500 ml Output Urine Total 1000 ml 175 ml Stool Total 0 ml # Voids 3 # Bowel Movements 0 0 Physical Exam GENERAL: SKIN: Warm and dry. HEAD: Normocephalic. EYES: No scleral icterus. No injection or drainage. NECK: Supple, trachea midline. No JVD or lymphadenopathy. CARDIOVASCULAR: Regular rate and rhythm without murmurs, gallops, or rubs. RESPIRATORY: Breath sounds equal bilaterally. No accessory muscle use. GASTROINTESTINAL: Abdomen soft, non-tender, nondistended. MUSCULOSKELETAL: No cyanosis, or edema. BACK: Nontender without obvious deformity. No CVA tenderness. Laboratory Laboratory Tests Test 07/22/17 06:06 White Blood Count 13.9 TH/MM3 Red Blood Count 5.11 MIL/MM3 Hemoglobin 13.9 GM/DL Hematocrit 42.4 % Mean Corpuscular Volume 83.0 FL Mean Corpuscular Hemoglobin 27.2 PG Mean Corpuscular Hemoglobin Concent 32.7 % Red Cell Distribution Width 14.1 % Platelet Count 223 TH/MM3 Mean Platelet Volume 8.4 FL Prothrombin Time 15.4 SEC Prothromb Time International Ratio 1.5 RATIO Activated Partial Thromboplast Time 27.9 SEC Blood Urea Nitrogen 19 MG/DL Creatinine 0.80 MG/DL Random Glucose 94 MG/DL Total Protein 5.3 GM/DL Albumin 2.6 GM/DL Calcium Level 8.0 MG/DL Alkaline Phosphatase 45 U/L Aspartate Amino Transf (AST/SGOT) 18 U/L Alanine Aminotransferase (ALT/SGPT) 29 U/L Total Bilirubin 1.7 MG/DL Sodium Level 143 MEQ/L Potassium Level 3.6 MEQ/L Chloride Level 107 MEQ/L Carbon Dioxide Level 27.1 MEQ/L Anion Gap 9 MEQ/L Estimat Glomerular Filtration Rate 96 ML/MIN Assessment and Plan Problem List: (1) Cardiomyopathy ICD Codes: I42.9 - Cardiomyopathy, unspecified (2) Atrial fibrillation with RVR ICD Codes: I48.91 - Unspecified atrial fibrillation Status: Acute (3) HTN (hypertension) ICD Codes: I10 - Essential (primary) hypertension Assessment and Plan 1.) Afib - rate controlled on lopressor 50 mg [id number], continue coumadin, inr 1.6 2.) Elevated troponin - suspect secondary to hypoxia and rvr, he is assymptomatic Problem Qualifiers (1) HTN (hypertension): Qualified Codes: I10 - Essential (primary) hypertension Feliciano Vasquez MD Jul 22, 2017 12:08
[2017-07-22] MEDS: WARFARIN SOD 6 MG TAB PO SCH (17:17)
--- NOTE | 2017-07-22 19:02 | HHI.PR ---
Subjective Remarks Nursing denies any deterioration since last night. Was explained to him the options of possible invasive cardiac workup, the patient has hesitations with a heart cath as he thinks that his prior heart cath had caused a stroke as a complication. Denies having any chest pain palpitation at this time. Objective Vital Signs Date Time Temp Pulse Resp B/P (MAP) Pulse Ox O2 Delivery O2 Flow Rate FiO2 07/22/17 16:20 104 07/22/17 16:00 98.0 85 20 165/90 (115) 96 07/22/17 12:00 97.9 98 20 157/87 (110) 96 07/22/17 12:00 103 07/22/17 08:15 82 07/22/17 08:00 97.7 79 20 138/84 (102) 96 07/22/17 04:25 97.4 80 18 123/78 (93) 93 07/22/17 04:00 81 07/22/17 00:00 74 07/21/17 23:35 98.0 73 18 111/69 (83) 95 07/21/17 20:47 98.2 91 18 142/77 (98) 96 07/21/17 20:00 95 I/O 07/21/17 07/21/17 07/21/17 07/22/17 07/22/17 07/22/17 07:00 15:00 23:00 07:00 15:00 23:00 Intake Total 500 ml 500 ml 0 ml 480 ml Output Total 1000 ml 175 ml Balance -500 ml 500 ml -175 ml 480 ml Intake Oral 500 ml 0 ml 480 ml IV Total 500 ml Output Urine Total 1000 ml 175 ml Stool Total 0 ml # Voids 3 3 # Bowel Movements 0 0 Result Diagram: 07/22/17 0606 07/22/17 0606 Objective Remarks Irregular heart rhythm, regular rate Unlabored breathing, clear lungs bilaterally, no lower extremity edema A/P Assessment and Plan Elevated troponin, likely type II NSTEMI secondary to demand ischemia treadmill stress test in AM per cards and pt joint decision since pt refusing cath and MPI Cardiomyopathy, EF 25% restart lisinopril, on lopressor, will add on aldactone upon discharge Afib now stable on scheduled Lopressor Continue Coumadin Possible acute gastroenteritis Nausea/vomiting Elevated T bili Lactic acidosis Resolved Leukocytosis improving, off abx per ID recs, Blood cultures Diabetes -- SSI DVT Prophylaxis -- SCDs/Coumadin has been resumed w pharmacy consult in place. Joey Marinelli MD Jul 22, 2017 19:02
[2017-07-22] MEDS: MELATONIN 5 MG TAB PO SCH (20:34)
[2017-07-23] VITALS (8 sets, daily range): BP systolic 133–160; BP diastolic 74–100; PULSE 66–105; RESP 18–22; TEMP 97.4–98.4; O2SAT 94–97
[2017-07-23] MEDS: INSULIN NovoLIN REGULAR SUPPLEMENTAL SCALE SQ SCH ×3 (08:00→17:00)
[2017-07-23] MEDS: POLYETHYLENE GLYCOL 17 GM PKG PO SCH (09:00)
[2017-07-23] MEDS ORDERED: PILL SPLITTER OTHER PRN (11:30)
[2017-07-23] MEDS ORDERED: LORazepam 0.5 MG TAB PO PRN (11:30)
--- NOTE | 2017-07-23 11:53 | PD.CARD.PN ---
Subjective Subjective Remarks assymptomatic, alert in nad Objective Medications Current Medications Medications (Trade) Dose Ordered Sig/Michael Route Start Time Stop Time Status Last Admin (NS Flush) 2 ml UNSCH PRN IVF 07/18/17 21:45 (Lopressor Inj) 5 mg Q5M PRN IV PUSH 07/19/17 01:15 07/19/17 19:41 (D50w (Vial) Inj) 25 ml UNSCH PRN IV PUSH 07/19/17 01:15 (NovoLIN R SUPPLEMENTAL SCALE) 1 ACHS AND 3AM SQ 07/19/17 03:00 07/19/17 12:00 (Pepcid) 20 mg Q12HR PO 07/19/17 09:00 07/22/17 08:52 (Duoneb Neb) 1 ampule Q2HR NEB PRN INH 07/19/17 01:15 ([facility] [place] Nursing Information) 1 Q361D XX 07/19/17 01:15 (Chlorhexidine 2% Cloth) 3 pack Taper DAILY@04 TOP 07/19/17 04:00 07/15/18 03:59 07/21/17 04:00 (Chlorhexidine 2% Cloth) 3 pack UNSCH PRN TOP 07/19/17 01:15 (Melatonin) 5 mg HS PO 07/19/17 23:45 07/22/17 20:34 (Zofran Odt) 4 mg Q6H PRN PO 07/20/17 06:45 Pharmacy Profile Note 0 ml @ 0 mls/hr UNSCH OTHER 07/21/17 09:30 (Lopressor) 50 mg Q8HR PO 07/21/17 14:00 07/22/17 21:39 (Coumadin) 6 mg DAILY@16 PO 07/21/17 16:00 07/22/17 17:17 (Aspirin Chew) 81 mg DAILY CHEW 07/22/17 09:00 07/22/17 08:52 (Miralax) 17 gm DAILY PO 07/21/17 13:30 07/22/17 08:51 (Ileana-Colace) 1 tab BID PRN PO 07/21/17 13:30 (Milk Of Magnesia Liq) 30 ml DAILY PRN PO 07/21/17 13:30 (Ativan) 0.25 mg UNSCH X1 PRN PO 07/23/17 11:30 07/23/17 23:59 (Pill Splitter) 1 ea UNSCH PRN OTHER 07/23/17 11:30 Vital Signs / I&O Vital Signs Date Time Temp Pulse Resp B/P (MAP) Pulse Ox O2 Delivery O2 Flow Rate FiO2 07/23/17 08:00 97.7 66 22 156/92 (113) 94 07/23/17 06:00 97.5 97 18 149/97 (114) 96 07/23/17 04:42 96 07/23/17 00:42 93 07/23/17 00:00 98.0 92 18 160/100 (120) 95 07/22/17 21:36 98.6 101 18 146/95 (112) 99 07/22/17 20:00 91 07/22/17 16:20 104 07/22/17 16:00 98.0 85 20 165/90 (115) 96 07/22/17 12:00 97.9 98 20 157/87 (110) 96 07/22/17 12:00 103 I/O 07/22/17 07/22/17 07/22/17 07/23/17 07/23/17 07/23/17 07:00 15:00 23:00 07:00 15:00 23:00 Intake Total 0 ml 480 ml 120 ml Output Total 175 ml 500 ml Balance -175 ml 480 ml -380 ml Intake Oral 0 ml 480 ml 120 ml Output Urine Total 175 ml 500 ml # Voids 3 # Bowel Movements 0 0 Physical Exam GENERAL: SKIN: Warm and dry. HEAD: Normocephalic. EYES: No scleral icterus. No injection or drainage. NECK: Supple, trachea midline. No JVD or lymphadenopathy. CARDIOVASCULAR: Regular rate and rhythm without murmurs, gallops, or rubs. RESPIRATORY: Breath sounds equal bilaterally. No accessory muscle use. GASTROINTESTINAL: Abdomen soft, non-tender, nondistended. MUSCULOSKELETAL: No cyanosis, or edema. BACK: Nontender without obvious deformity. No CVA tenderness. Imaging GENERAL: SKIN: Warm and dry. HEAD: Normocephalic. EYES: No scleral icterus. No injection or drainage. NECK: Supple, trachea midline. No JVD or lymphadenopathy. CARDIOVASCULAR: Regular rate and rhythm without murmurs, gallops, or rubs. RESPIRATORY: Breath sounds equal bilaterally. No accessory muscle use. GASTROINTESTINAL: Abdomen soft, non-tender, nondistended. MUSCULOSKELETAL: No cyanosis, or edema. BACK: Nontender without obvious deformity. No CVA tenderness. Assessment and Plan Problem List: (1) Cardiomyopathy ICD Codes: I42.9 - Cardiomyopathy, unspecified (2) Atrial fibrillation with RVR ICD Codes: I48.91 - Unspecified atrial fibrillation Status: Acute (3) HTN (hypertension) ICD Codes: I10 - Essential (primary) hypertension Assessment and Plan 1.) Afib - rate controlled on lopressor 50 mg [id number], continue coumadin, inr 1.6 2.) Elevated troponin - suspect secondary to hypoxia and rvr, he is assymptomatic; he refuses cath due to h/o cva associated with last cath, he refuses mps due to claustrophobia; plan plain exercise treadmill test Problem Qualifiers (1) HTN (hypertension): Qualified Codes: I10 - Essential (primary) hypertension Feliciano Vasquez MD Jul 23, 2017 11:53
[2017-07-23] MEDS ORDERED: ATOR40TA16 PO (15:57)
[2017-07-23] MEDS: WARFARIN SOD 6 MG TAB PO SCH (18:09)
[2017-07-23] MEDS: ASPIRIN 81 MG CHEW TAB CHEW SCH (18:09)
[2017-07-23] MEDS: FAMOTIDINE 20 MG TAB PO SCH (18:10)
[2017-07-23] MEDS: METOPROLOL TARTRATE 50 MG TAB PO SCH (18:10)
== END 2017-07-23 19:15 | disposition home or self-care (01) | DRG 309 ==
LOC: NEPE 21:05 → NEDA 07-19 01:00 → HIMN 07-19 02:40 → N04A 07-21 17:16
PROVIDERS: ADMIT Hospitalist; ATTEND Hospitalist
DX: I48.91 Unspecified atrial fibrillation (principal); N17.9 Acute kidney failure, unspecified; E87.2 Acidosis; I42.9 Cardiomyopathy, unspecified; I50.9 Heart failure, unspecified; I11.0 Hypertensive heart disease with heart failure; E11.9 Type 2 diabetes mellitus without complications; D72.829 Elevated white blood cell count, unspecified; F41.9 Anxiety disorder, unspecified; R74.8 Abnormal levels of other serum enzymes; K52.9 Noninfective gastroenteritis and colitis, unspecified; F40.240 Claustrophobia; R09.02 Hypoxemia; Z88.0 Allergy status to penicillin; Z86.73 Personal history of transient ischemic attack (TIA), and cerebral infarction without residual deficits; Z79.01 Long term (current) use of anticoagulants; Z79.82 Long term (current) use of aspirin; Z79.899 Other long term (current) drug therapy; Z87.891 Personal history of nicotine dependence
CPT/HCPCS: 71045; 74177; 76705; 80053; 81001; 82140; 82550; 82948; 83036; 83605; 83690; 83735; 83880; 84100; 84145; 84439; 84443; 84484; 85007; 85025; 85027; 85610; 85730; 86140; 87040; 87086; 87641; 93005; 93970; 94150; 94640; 94664; 94667; 96365; 96366; 96368; 96375; J1160; J2930; J3010; J3370; J3475; J7050; Q9967